=== PATIENT | male | born 1985 | race Hispanic/Latino ===

== ENCOUNTER 2018-01-08 17:04 | Emergency (ER) | payer SELFPAY ==
[2018-01-08] MEDS ORDERED: ASPIRIN 81 MG CHEWABLE TABLET ONE (18:58)
--- NOTE | 2018-01-08 19:06 | EKG ---
Test Date: 2018-01-08 Test Time: 17:16:17 Supervisor Cured Meats: GENARO MEASUREMENT RESULTS: Intervals: Rate: 86 GA: 148 QRSD: 94 QT: 358 QTc: 428 [place]: P: 52 GA: 148 QRS: 82 T: 22 INTERPRETIVE STATEMENTS: Sinus rhythm with marked sinus arrhythmia Otherwise normal ECG Compared to ECG 11/21/2014 10:54:47 No significant changes Electronically Signed On 01-08-18 19:05:39 CDT by Daniel Wilkerson
[2018-01-08 19:24] LABS: Barbiturates NEGATIVE; Benzodiazepines NEGATIVE; Cocaine NEGATIVE; METHAMPHETAM NEGATIVE; Opiates NEGATIVE; Phencyclidine NEGATIVE; THC Cannibis NEGATIVE
[2018-01-08 19:27] LABS: Absolute Lymphocytes (CBC) 2.3 K/uL (0.7-4.9); Absolute Monocytes 0.5 K/uL (0.1-1.3); Absolute Neutrophil 4.9 K/uL (1.8-8.0); Basophils % 0.3 % (0-1.3); Hematocrit 44.3 % (39.6-49.0); Lymphocytes % 29.5 % (15.3-44.8); MCH 29.8 pg (27.0-35.0); MCV 85.9 fL (80-100); Monocytes % 6.1 % (3.3-12.3); RBC Red Blood Cell Count 5.16 M/uL (4.33-5.43)
[2018-01-08 19:30] LABS: Protime INR 0.96
[2018-01-08 19:31] LABS: Bicarbonate 26 mEq/L (21-31); Glucose Level 92 mg/dL (65-120); Potassium 3.6 mEq/L (3.6-5.0); Sodium Level 138 mEq/L (135-145)
[2018-01-08 19:36] LABS: Urine Blood NEGATIVE (NEG); Urine Glucose NEGATIVE (NEG); Urine Protein NEGATIVE (NEG); Urine Specific Gravity 1.015 (1.005-1.030)
[2018-01-08 19:37] LABS: ALT/SGPT 42 IU/L (10-60); AST/SGOT 17 IU/L (10-42); Albumin 4.2 g/dL (3.2-5.5); Alkaline Phosphatase 48 IU/L (42-121); BUN Blood Urea Nitrogen 12 mg/dL (6-20); Bilirubin Direct 0.2 mg/dL (0-0.2); Bilirubin Total 1.1 mg/dL (0.3-1.2); Creatine Phosphokinase 141 IU/L (22-269); Protein, Total 7.2 g/dL (6.0-8.3)
[2018-01-08 19:38] LABS: CKMB Creatine Kinase MB 1.5 ng/ml (0.3-4.0)
--- NOTE | 2018-01-08 20:21 | RAD REPORT ---
EXAM DESCRIPTION: RAD - Chest Single View - 01/08/2018 8:08 pm CLINICAL HISTORY: Chest pain. COMPARISON: 11/21/2014 FINDINGS: Portable technique limits examination quality. The lungs are grossly clear. The heart is normal in size. No displaced fractures. IMPRESSION: No acute intrathoracic process suspected.
--- NOTE | 2018-01-08 21:54 | ER ---
Nurse's Notes [facility] Name: Zackary Mandujano Jr Age: 32 yrs Sex: Male : 1985 Arrival Date: 01/08/2018 Time: 17:07 Bed 25 Private MD: Diagnosis: Chest pain, unspecified Presentation: 01/08 17:08 Presenting complaint: Patient states: i have pain in my chest yesterday, heavy feeling; hj denies nausea and vomiting; pain is 7/10; states feels like i wanna pass out;. Transition of care: patient was not received from another setting of care. Onset of symptoms was January 08, 2018. Care prior to arrival: None. 17:08 Method Of Arrival: Ambulatory 17:08 Acuity: TOYA 3 hj Triage Assessment: 17:10 General: Appears in no apparent distress. uncomfortable, Behavior is calm, cooperative, hj appropriate for age. Pain: Complains of pain in chest. Cardiovascular: Capillary refill. Historical: - Allergies: 17:09 No Known Allergies; hj - Home Meds: 17:09 None [Active]; hj - PMHx: 17:09 None; hj - PSHx: 17:09 None; hj - Immunization history:: Flu vaccine status is unknown. - Social history:: Smoking status: Patient/guardian denies using tobacco. Screenin:11 Abuse screen: Denies threats or abuse. Nutritional screening: No deficits noted. kb1 Tuberculosis screening: No symptoms or risk factors identified. Fall Risk None identified. Assessment: 17:10 Pain: Pain does not radiate. Pain began suddenly. hj 18:11 General: Appears in no apparent distress. Behavior is calm, cooperative. Pain: Denies kb1 pain. Neuro: Level of Consciousness is awake, alert, obeys commands, Oriented to person, place, time, situation. Cardiovascular: Reports Intermittent chest pain since Friday. States "I have a history of anxiety and I think that may be what it is". Reports having new stressors, and that pain comes along when he is "thinking". Respiratory: Denies shortness of breath. GI: No signs and/or symptoms were reported involving the gastrointestinal system. : No signs and/or symptoms were reported regarding the genitourinary system. 19:40 Reassessment: Patient appears in no apparent distress at this time. Patient and/or kb1 family updated on plan of care and expected duration. Pain level reassessed. Patient is alert, oriented x 3, equal unlabored respirations, skin warm/dry/pink. 20:39 Reassessment: Patient appears in no apparent distress at this time. Patient and/or kb1 family updated on plan of care and expected duration. Pain level reassessed. Patient is alert, oriented x 3, equal unlabored respirations, skin warm/dry/pink. Request something to drink. Gatorade provided. 21:42 Reassessment: Patient appears in no apparent distress at this time. Patient and/or kb1 family updated on plan of care and expected duration. Pain level reassessed. Patient is alert, oriented x 3, equal unlabored respirations, skin warm/dry/pink. Vital Signs: 17:10 BP 133 / 89; Pulse 88; Resp 18; Temp 98.7(TE); Pulse Ox 98% on R/A; Weight 108.86 kg; hj Height 5 ft. 11 in. (180.34 cm); Pain 7/10; 18:11 BP 124 / 86; Pulse 74; Resp 18; Pulse Ox 96% on R/A; kb1 19:41 BP 129 / 74; Pulse 95; Resp 18; Pulse Ox 98% ; kb1 20:42 BP 133 / 78; Pulse 61; Resp 18; Pulse Ox 98% ; kb1 21:45 BP 108 / 70; Pulse 57; Resp 18; Pulse Ox 97% ; kb1 17:10 Body Mass Index 33.47 (108.86 kg, 180.34 cm) ED Course: 17:07 Patient arrived in ED. rg4 17:09 Triage completed. hj 17:10 Arm band placed on right wrist. hj 17:10 personnel monitor on. Pulse ox on. NIBP on. hj 17:10 Patient maintains SpO2 saturation greater than 95% on room air. hj 17:32 EKG done, by ortho tech. reviewed by Garrett Florez MD. at1 18:01 Betty Han, RN is Primary Nurse. kb1 18:11 Patient has correct armband on for positive identification. Placed in gown. Bed in low kb1 position. Call light in reach. Side rails up X 1. personnel monitor on. Pulse ox on. NIBP on. 18:11 No provider procedures requiring assistance completed. kb1 18:12 Garrett Wheat PA is PHCP. cp 18:12 Garrett Florez MD is Attending Physician. cp 18:55 Inserted saline lock: 20 gauge in left antecubital area, using aseptic technique. Blood kb1 collected. 18:55 Urine collected: clean catch specimen. kb1 20:07 X-ray completed. Portable x-ray completed in exam room. Patient tolerated procedure kc2 well. 20:08 XRAY Chest (1 view) In Process Unspecified. EDMS 21:42 Repeat lab(s) drawn. by me, sent to lab. kb1 21:44 EKG done, by ED staff, reviewed by Garrett ELDRIDGE. kb1 22:11 IV discontinued, intact, bleeding controlled, No redness/swelling at site. Pressure kb1 dressing applied. Administered Medications: 18:56 Drug: Aspirin Chewable Tablet 324 mg Route: PO; kb1 20:16 Follow up: Response: No adverse reaction kb1 Outcome: 21:54 Discharge ordered by MD. cp 22:12 Discharged to home ambulatory. kb1 22:12 Condition: stable 22:12 Discharge instructions given to patient, Instructed on discharge instructions, follow up and referral plans. Demonstrated understanding of instructions, follow-up care. 22:13 Patient left the ED. kb1 Signatures: Dispatcher [employer] EDMS Sylvia cesar, sound technician supervisor EKG Tat1 Daivd Jain, RN RN Garrett Goodman PA PA cp Carr, Kelsie kc2 Nathaly Moore rg4 Betty Han RN RN kb1 Corrections: (The following items were deleted from the chart) 17:12 17:10 Pulse 88bpm; Resp 18bpm; Pulse Ox 98% RA; Temp 98.7F Temporal; 108.86 kg; Height hj 5 ft. 11 in.; BMI: 33.4; Pain 7/10; hj
--- NOTE | 2018-01-08 21:54 | EDPHYS ---
Physician Documentation [facility] Name: Zackary Mandujano Jr Age: 32 yrs Sex: Male : 1985 Arrival Date: 01/08/2018 Time: 17:07 Bed 25 Private MD: ED Physician Garrett Florez HPI: 01/08 18:30 This 32 yrs old Male presents to ER via Ambulatory with complaints of Chest cp Pain, Headache. 18:30 The patient or guardian reports chest pain that is located primarily in the anterior cp chest wall, left. 18:30 The pain does not radiate. Associated signs and symptoms: Pertinent positives: cp headache, Pertinent negatives: cough, diaphoresis, dizziness, lower extremity pain, lower extremity swelling, near syncope, shortness of breath, syncope. The chest pain is described as a pressure. Duration: The patient or guardian reports multiple episodes, that are intermittent. Severity of pain: in the emergency department the pain has resolved and did so while in waiting room. Historical: - Allergies: 17:09 No Known Allergies; hj - Home Meds: 17:09 None [Active]; hj - PMHx: 17:09 None; hj - PSHx: 17:09 None; hj - Immunization history:: Flu vaccine status is unknown. - Social history:: Smoking status: Patient/guardian denies using tobacco. ROS: 18:35 Constitutional: Negative for body aches, chills, fever, poor PO intake. cp 18:35 Eyes: Negative for injury, pain, redness, and discharge. cp 18:35 ENT: Negative for injury, pain, and discharge, Neck: Negative for injury, pain, and cp swelling. 18:35 Cardiovascular: Positive for chest pain, Negative for edema, palpitations. 18:35 Respiratory: Negative for cough, pleurisy, shortness of breath, wheezing. 18:35 Abdomen/GI: Negative for abdominal pain, nausea, vomiting, and diarrhea, constipation, anorexia, black/tarry stool, rectal bleeding. 18:35 Back: Negative for pain at rest, pain with movement, radiated pain. 18:35 : Negative for urinary symptoms. 18:35 MS/extremity: Negative for injury or acute deformity, decreased range of motion, paresthesias. 18:35 Skin: Negative for cellulitis, rash. 18:35 Neuro: Negative for altered mental status, headache, syncope, near syncope, weakness. 18:35 All other systems are negative. Exam: 18:45 Constitutional: The patient appears in no acute distress, alert, awake, comfortable, cp non-diaphoretic, non-toxic, well developed, well nourished. 18:45 Head/Face: Normocephalic, atraumatic. cp 18:45 Eyes: Pupils equal round and reactive to light, extra-ocular motions intact. Lids and cp lashes normal. Conjunctiva and sclera are non-icteric and not injected. Cornea within normal limits. Periorbital areas with no swelling, redness, or edema. ENT: Nares patent. No nasal discharge, no septal abnormalities noted. Tympanic membranes are normal and external auditory canals are clear. Oropharynx with no redness, swelling, or masses, exudates, or evidence of obstruction, uvula midline. Mucous membranes moist. Neck: Trachea midline, no thyromegaly or masses palpated, and no cervical lymphadenopathy. Supple, full range of motion without nuchal rigidity, or vertebral point tenderness. No Meningismus. Chest/axilla: Normal chest wall appearance and motion. Nontender with no deformity. No lesions are appreciated. 18:45 Cardiovascular: Rate: normal, Rhythm: regular, Pulses: Pulses are 2+ in right radial cp artery and left radial artery. Heart sounds: murmur, not appreciated, rub, not appreciated, gallop, not appreciated, Edema: is not appreciated. 18:45 Respiratory: the patient does not display signs of respiratory distress, Respirations: normal, no use of accessory muscles, no retractions, no splinting, no tachypnea, labored breathing, is not present, Breath sounds: are clear throughout, no decreased breath sounds, no stridor, no wheezing. 18:45 Abdomen/GI: Inspection: abdomen appears normal, Bowel sounds: active, all quadrants, Palpation: abdomen is soft and non-tender, in all quadrants, rebound tenderness, is not appreciated, voluntary guarding, is not appreciated, involuntary guarding, is not appreciated. 18:45 Back: pain, is absent, ROM is normal. 18:45 Musculoskeletal/extremity: Exam is negative for calf tenderness, decreased range of motion, deformity, injury. 18:45 Skin: cellulitis, is not appreciated, no rash present. 18:45 Neuro: Orientation: to person, place \T\ time. Mentation: is normal, Cerebellar function: is grossly normal, Motor: moves all fours, strength is normal, Sensation: no obvious gross deficits. Vital Signs: 17:10 BP 133 / 89; Pulse 88; Resp 18; Temp 98.7(TE); Pulse Ox 98% on R/A; Weight 108.86 kg; hj Height 5 ft. 11 in. (180.34 cm); Pain 7/10; 18:11 BP 124 / 86; Pulse 74; Resp 18; Pulse Ox 96% on R/A; kb1 19:41 BP 129 / 74; Pulse 95; Resp 18; Pulse Ox 98% ; kb1 20:42 BP 133 / 78; Pulse 61; Resp 18; Pulse Ox 98% ; kb1 21:45 BP 108 / 70; Pulse 57; Resp 18; Pulse Ox 97% ; kb1 17:10 Body Mass Index 33.47 (108.86 kg, 180.34 cm) hj MDM: 18:13 Patient medically screened. cp 19:00 Differential diagnosis: abnormal EKG, acute myocardial infarction, acute pericarditis, cp anxiety, chest wall pain, cholecystitis, Cholelithiasis costochondritis, esophagitis, gastritis, pancreatitis, pericarditis, pleurisy, pneumonia, pneumothorax, pulmonary embolus, stable angina, thoracic aortic disection, unstable angina. 21:53 Data reviewed: vital signs, nurses notes, lab test result(s), EKG, radiologic studies, cp plain films. 21:53 Special discussion: Based on the patient's history, exam, and Dx evaluation, there is cp no indication for emergent intervention or inpatient Tx. It is understood by the patient/guardian that if the Sx's persist or worsen they need to return immediately for re-evaluation. 21:53 ED course: VSS. Labs, EKGs and chest xray reviewed, negative. Will discharge to home cp for continued monitoring. 01/08 18:30 Order name: Basic Metabolic Panel; Complete Time: 19:48 cp 01/08 18:30 Order name: BNP; Complete Time: 21:32 cp 01/08 18:30 Order name: CBC with Diff; Complete Time: 19:48 cp 01/08 18:30 Order name: Ckmb; Complete Time: 19:48 cp 01/08 18:30 Order name: CPK; Complete Time: 19:48 cp 04/05 18:30 Order name: LFT's; Complete Time: 19:48 cp 04/05 18:30 Order name: Magnesium; Complete Time: 19:48 cp 04/05 18:30 Order name: PT-INR; Complete Time: 19:48 cp 04/05 18:30 Order name: Ptt, Activated; Complete Time: 19:48 cp 04/05 18:30 Order name: Troponin (emerg Dept Use Only); Complete Time: 19:48 cp 04/05 18:30 Order name: UDS; Complete Time: 19:49 cp 04/05 18:30 Order name: D-Dimer; Complete Time: 19:49 cp /05 18:59 Order name: Urine Dipstick--Ancillary (enter results); Complete Time: 19:49 ag / 21:18 Order name: Troponin I; Complete Time: 21:53 cp 04/05 21:53 Interpretation: Reviewed. cp / 17:12 Order name: EKG; Complete Time: 17:12 hj 01/08 18:12 Order name: EKG - Nurse/Tech; Complete Time: 18:20 cp 05 18:30 Order name: XRAY Chest (1 view); Complete Time: 21:32 cp /05 18:30 Order name: Cardiac monitoring; Complete Time: 18:56 cp /05 18:30 Order name: IV Saline Lock; Complete Time: 18:56 cp /05 18:30 Order name: Labs collected and sent; Complete Time: 18:56 cp /05 18:30 Order name: O2 Per Protocol; Complete Time: 18:56 cp /05 18:30 Order name: O2 Sat Monitoring; Complete Time: 18:56 cp /05 18:30 Order name: Urine Dipstick-Ancillary (obtain specimen); Complete Time: 18:56 cp 05 21:18 Order name: EKG; Complete Time: 21:19 cp / 21:18 Order name: EKG - Nurse/Tech; Complete Time: 21:43 cp Administered Medications: 18:56 Drug: Aspirin Chewable Tablet 324 mg Route: PO; kb1 20:16 Follow up: Response: No adverse reaction kb1 Disposition: 01/09 10:36 Co-signature as Attending Physician, Garrett Florez MD I agree with the assessment and norbert plan of care. Disposition: 01/08/18 21:54 Discharged to Home. Impression: Chest pain, unspecified. - Condition is Stable. - Discharge Instructions: Nonspecific Chest Pain, Aspirin and Your Heart. - Medication Reconciliation Form, Thank You Letter, Antibiotic Education, Prescription Opioid Use form. - Follow up: Private Physician; When: 2 - 3 days; Reason: Recheck today's complaints. - Problem is new. - Symptoms are resolved. Signatures: Dispatcher [employer] EDGarrett Colorado MD MD cha Joaquin, Henry, RN RN hj Garrett Wheat PA PA cp Brown, Kristina, RN RN kb1
[2018-01-08 22:25] VITALS: TEMP 98.7
[2018-01-08 22:30] VITALS: BP 108/70; O2SAT 97
--- NOTE | 2018-01-09 06:31 | EKG ---
Test Date: 2018-01-08 Test Time: 21:23:07 Room Service Attendant: OLLIE MEASUREMENT RESULTS: Intervals: Rate: 51 MD: 146 QRSD: 96 QT: 406 QTc: 374 [place]: P: 32 MD: 146 QRS: 75 T: 32 INTERPRETIVE STATEMENTS: Sinus bradycardia with sinus arrhythmia Otherwise normal ECG Compared to ECG 01/08/2018 17:16:17 Sinus rhythm no longer present Electronically Signed On 01-09-18 06:30:54 CDT by Daniel Wilkerson
== END 2018-01-08 22:13 | disposition home or self-care (01) ==
LOC: ER 17:04
DX: R07.9 Chest pain, unspecified (principal)
CPT/HCPCS: 36415; 71045; 80048; 80076; 80307; 81003; 82550; 82553; 83735; 83880; 84484; 85025; 85379; 85610; 85730; 93005; 99285

== ENCOUNTER 2019-03-29 18:22 | Emergency (ER) | payer SELFPAY ==
[2019-03-29 20:17] LABS: Absolute Lymphocytes (CBC) 2.6 K/uL (0.7-4.9); Basophils % 0.1 % (0-1.3); Eosinophils % 1.5 % (0-4.4); Hematocrit 44.2 % (39.6-49.0); MPV 8.9 fL (7.6-11.3); Monocytes % 6.9 % (3.3-12.3); RBC Red Blood Cell Count 5.07 M/uL (4.33-5.43)
[2019-03-29 20:30] LABS: BUN Blood Urea Nitrogen 13 mg/dL (7-18); Bicarbonate 28 mmol/L (21-32); Glucose Level 102 mg/dL (74-106); Potassium 3.6 mmol/L (3.5-5.1); Sodium Level 142 mmol/L (136-145)
--- NOTE | 2019-03-29 21:19 | ER ---
Nurse's Notes [facility] Name: Zackary Mandujano Jr Age: 33 yrs Sex: Male : 1985 Arrival Date: 03/29/2019 Time: 18:25 Bed 17 Private MD: Diagnosis: Headache;Paresthesia of skin Presentation: 03/29 18:28 Presenting complaint: Patient states: nadia been having this headache for 4-5 days now hj and my L leg is asleep; on triage pt has steady gait; pain is 2/10;. Transition of care: patient was not received from another setting of care. Onset of symptoms was March 29, 2019. Risk Assessment: Do you want to hurt yourself or someone else? Patient reports no desire to harm self or others. Initial Sepsis Screen: Does the patient meet any 2 criteria? No. Patient's initial sepsis screen is negative. Does the patient have a suspected source of infection? No. Patient's initial sepsis screen is negative. Care prior to arrival: None. 18:28 Method Of Arrival: Ambulatory 18:28 Acuity: TOYA 3 hj Historical: - Allergies: 18:29 No Known Allergies; hj - PMHx: 18:29 None; hj - PSHx: 18:29 None; hj - Immunization history:: Adult Immunizations up to date. - Social history:: Smoking status: Patient/guardian denies using tobacco. - Ebola Screening: : Patient negative for fever greater than or equal to 101.5 degrees Fahrenheit, and additional compatible Ebola Virus Disease symptoms Patient denies exposure to infectious person Patient denies travel to an Ebola-affected area in the 21 days before illness onset. Screenin:45 Abuse screen: Denies threats or abuse. Denies injuries from another. Nutritional ca1 screening: No deficits noted. Tuberculosis screening: No symptoms or risk factors identified. Fall Risk None identified. Assessment: 18:45 General: Appears in no apparent distress. comfortable, Behavior is calm, cooperative, ca1 appropriate for age. Pain: Complains of pain in face, scalp and left leg Pain does not radiate. Pain at worst was 6 out of 10 on a pain scale. Quality of pain is described as numb, Pain began 4 days ago. Neuro: Level of Consciousness is awake, alert, obeys commands, Oriented to person, place, time, situation, Reports headache. Cardiovascular: Heart tones S1 S2 present Capillary refill < 3 seconds Patient's skin is warm and dry. Cardiovascular: Reports lightheadedness. Respiratory: Airway is patent Respiratory effort is even, unlabored, Respiratory pattern is regular, symmetrical, Breath sounds are clear bilaterally. GI: Abdomen is round non-distended, Bowel sounds present X 4 quads. Abd is soft and non tender X 4 quads. : No deficits noted. No signs and/or symptoms were reported regarding the genitourinary system. EENT: No deficits noted. No signs and/or symptoms were reported regarding the EENT system. Derm: Skin is intact, is healthy with good turgor, Skin is pink, warm \T\ dry. Musculoskeletal: Circulation, motion, and sensation intact. Capillary refill < 3 seconds, Range of motion: intact in all extremities. 19:00 General: Appears in no apparent distress. comfortable, Behavior is calm, cooperative. ed1 Pain: Complains of pain in head and left leg Pain currently is 6 out of 10 on a pain scale. Quality of pain is described as aching, Pain began 4 days ago. Neuro: Level of Consciousness is awake, alert, obeys commands, Oriented to person, place, time, situation, Reports headache in entire parietal area, frontal area. Cardiovascular: Denies chest pain at this time Heart tones S1 S2 present Capillary refill < 3 seconds in bilateral fingers Patient's skin is warm and dry. Respiratory: Airway is patent Respiratory effort is even, unlabored, Respiratory pattern is regular, symmetrical, Breath sounds are clear bilaterally. GI: No signs and/or symptoms were reported involving the gastrointestinal system. : No signs and/or symptoms were reported regarding the genitourinary system. EENT: No signs and/or symptoms were reported regarding the EENT system. Derm: Skin is intact, is healthy with good turgor, Skin is dry, Skin is normal, Skin temperature is warm. Musculoskeletal: Circulation, motion, and sensation intact. Capillary refill < 3 seconds, in bilateral fingers. Range of motion: intact in all extremities, Swelling absent Reports pain in left leg. 20:14 Reassessment: Patient appears in no apparent distress at this time. No changes from ed1 previously documented assessment. Patient and/or family updated on plan of care and expected duration. Pain level reassessed. Patient is alert, oriented x 3, equal unlabored respirations, skin warm/dry/pink. Patient states symptoms have not improved. 21:33 Reassessment: Patient appears in no apparent distress at this time. Patient and/or ed1 family updated on plan of care and expected duration. Pain level reassessed. Patient is alert, oriented x 3, equal unlabored respirations, skin warm/dry/pink. Patient states feeling better. Patient states symptoms have improved. Vital Signs: 18:29 BP 147 / 86; Pulse 76; Resp 18; Temp 98.1(O); Pulse Ox 98% on R/A; Weight 113.4 kg; hj Height 5 ft. 11 in. (180.34 cm); Pain 2/10; 19:00 BP 137 / 79; Pulse 67; Resp 17; Temp 98.5(O); Pulse Ox 98% on R/A; Pain 3/10; ed1 20:14 BP 132 / 80; Pulse 72; Resp 26; Temp 98.1(O); Pulse Ox 98% on R/A; Pain 3/10; ed1 21:33 BP 133 / 77; Pulse 84; Resp 17; Temp 98.2(O); Pulse Ox 100% on R/A; Pain 0/10; ed1 18:29 Body Mass Index 34.87 (113.40 kg, 180.34 cm) ED Course: 18:25 Patient arrived in ED. mr 18:29 Triage completed. hj 18:29 Arm band placed on left wrist. hj 18:45 No provider procedures requiring assistance completed. ca1 18:49 Bahman Hollins MD is Attending Physician. kdr 18:49 Alysno Hawkins, JAMES is Primary Nurse. ca1 18:52 Patient has correct armband on for positive identification. Placed in gown. Bed in low mh5 position. Call light in reach. Side rails up X 1. Adult w/ patient. Warm blanket given. cyber systems administrator on. Pulse ox on. NIBP on. 18:52 EKG done, by ED staff, reviewed by Bahman Hollins MD. mh5 18:57 Primary Nurse role handed off by Alyson Hawkins, RN ca1 18:59 Jeanette De Jesus RN is Primary Nurse. ed1 20:02 CT Head Brain wo Cont In Process Unspecified. EDMS 20:51 Inserted saline lock: 20 gauge in right antecubital area, using aseptic technique. ag4 Blood collected. 21:33 IV discontinued, intact, bleeding controlled, No redness/swelling at site. Pressure ed1 dressing applied. Administered Medications: No medications were administered Outcome: 21:18 Discharge ordered by . kdr 21:33 Discharged to home ambulatory. ed1 21:33 Condition: good 21:33 Discharge instructions given to patient, Instructed on discharge instructions, follow up and referral plans. medication usage, Demonstrated understanding of instructions, follow-up care, medications, Prescriptions given X 1. 21:35 Patient left the ED. ed1 Signatures: Dispatcher [employer] EDMS Bahman Hollins MD MD kdr Rivera, Marielena mr Jeanette De Jesus RN RN ed1 David Jain, JAMES RN Rachel Lee [facility] Yovani Woodson ag4 Alyson Hawkins RN RN ca1 Corrections: (The following items were deleted from the chart) 18:31 18:29 Pulse 76bpm; Resp 18bpm; Pulse Ox 98% RA; Temp 98.1F Oral; 113.4 kg; Height 5 ft. hj 11 in.; BMI: 34.8; Pain 2/10; hj
--- NOTE | 2019-03-29 21:19 | EDPHYS ---
Physician Documentation [facility] Name: Zackary Mandujano Jr Age: 33 yrs Sex: Male : 1985 Arrival Date: 03/29/2019 Time: 18:25 Bed 17 Private MD: ED Physician Bahman Hollins HPI: 03/29 20:37 This 33 yrs old Male presents to ER via Ambulatory with complaints of kdr Headache, Numbness. 20:37 The patient complains of pain to the left temporal area, left occipital area, right kdr frontal area, right temporal area and right occipital area. The patient describes the headache as aching, intermittent, a pressure, waxing and waning. Onset: The symptoms/episode began/occurred gradually, 4 day(s) ago. Associated signs and symptoms: Pertinent positives: The patient has a "pins \\T\\ needles" sensation to he left lower extremity that has been progressing up his left left leg. the sensation has been ongoing for some time but has recently progressed up his leg to his thigh. Severity of symptoms: At its worst the pain was very mild, in the emergency department the pain is unchanged. Headache History: The patient has had previous headaches and this one is different than previous episodes. The symptoms are alleviated by nothing. the symptoms are aggravated by nothing. The patient has not experienced similar symptoms in the past. The patient has not recently seen a physician. Historical: - Allergies: 18:29 No Known Allergies; hj - PMHx: 18:29 None; hj - PSHx: 18:29 None; hj - Immunization history:: Adult Immunizations up to date. - Social history:: Smoking status: Patient/guardian denies using tobacco. - Ebola Screening: : Patient negative for fever greater than or equal to 101.5 degrees Fahrenheit, and additional compatible Ebola Virus Disease symptoms Patient denies exposure to infectious person Patient denies travel to an Ebola-affected area in the 21 days before illness onset. ROS: 20:37 Constitutional: Negative for fever, chills, and weight loss, Eyes: Negative for injury, kdr pain, redness, and discharge, ENT: Negative for injury, pain, and discharge, Neck: Negative for injury, pain, and swelling, Cardiovascular: Negative for chest pain, palpitations, and edema, Respiratory: Negative for shortness of breath, cough, wheezing, and pleuritic chest pain, Abdomen/GI: Negative for abdominal pain, nausea, vomiting, diarrhea, and constipation, Back: Negative for injury and pain, : Negative for injury, bleeding, discharge, and swelling, MS/Extremity: Negative for injury and deformity, Skin: Negative for injury, rash, and discoloration, Psych: Negative for depression, anxiety, suicide ideation, homicidal ideation, and hallucinations, Allergy/Immunology: Negative for hives, rash, and allergies, Endocrine: Negative for neck swelling, polydipsia, polyuria, polyphagia, and marked weight changes, Hematologic/Lymphatic: Negative for swollen nodes, abnormal bleeding, and unusual bruising. 20:37 Neuro: Positive for headache, tingling, Negative for altered mental status, dizziness, gait disturbance, hearing loss, loss of consciousness, numbness, seizure activity, speech changes, syncope, near syncope, tinnitus, tremor, visual changes, weakness. Exam: 20:37 Constitutional: This is a well developed, well nourished patient who is awake, alert, kdr and in no acute distress. Head/Face: Normocephalic, atraumatic. Eyes: Pupils equal round and reactive to light, extra-ocular motions intact. Lids and lashes normal. Conjunctiva and sclera are non-icteric and not injected. Cornea within normal limits. Periorbital areas with no swelling, redness, or edema. Neck: Trachea midline, no thyromegaly or masses palpated, and no cervical lymphadenopathy. Supple, full range of motion without nuchal rigidity, or vertebral point tenderness. No Meningismus. Chest/axilla: Normal chest wall appearance and motion. Nontender with no deformity. No lesions are appreciated. Cardiovascular: Regular rate and rhythm with a normal S1 and S2. No gallops, murmurs, or rubs. Normal PMI, no JVD. No pulse deficits. Respiratory: Lungs have equal breath sounds bilaterally, clear to auscultation and percussion. No rales, rhonchi or wheezes noted. No increased work of breathing, no retractions or nasal flaring. Abdomen/GI: Soft, non-tender, with normal bowel sounds. No distension or tympany. No guarding or rebound. No evidence of tenderness throughout. Back: No spinal tenderness. No costovertebral tenderness. Full range of motion. Skin: Warm, dry with normal turgor. Normal color with no rashes, no lesions, and no evidence of cellulitis. MS/ Extremity: Pulses equal, no cyanosis. Neurovascular intact. Full, normal range of motion. Neuro: Awake and alert, GCS 15, oriented to person, place, time, and situation. Cranial nerves II-XII grossly intact. Motor strength 5/5 in all extremities. Sensory grossly intact. Cerebellar exam normal. Normal gait. Psych: Awake, alert, with orientation to person, place and time. Behavior, mood, and affect are within normal limits. 21:05 ECG was reviewed by the Attending Physician. kdr Vital Signs: 18:29 BP 147 / 86; Pulse 76; Resp 18; Temp 98.1(O); Pulse Ox 98% on R/A; Weight 113.4 kg; hj Height 5 ft. 11 in. (180.34 cm); Pain 2/10; 19:00 BP 137 / 79; Pulse 67; Resp 17; Temp 98.5(O); Pulse Ox 98% on R/A; Pain 3/10; ed1 20:14 BP 132 / 80; Pulse 72; Resp 26; Temp 98.1(O); Pulse Ox 98% on R/A; Pain 3/10; ed1 21:33 BP 133 / 77; Pulse 84; Resp 17; Temp 98.2(O); Pulse Ox 100% on R/A; Pain 0/10; ed1 18:29 Body Mass Index 34.87 (113.40 kg, 180.34 cm) MDM: 20:37 Data reviewed: vital signs, nurses notes, lab test result(s), radiologic studies. kdr Counseling: I had a detailed discussion with the patient and/or guardian regarding: the historical points, exam findings, and any diagnostic results supporting the discharge/admit diagnosis, lab results, radiology results, the need for outpatient follow up. 21:18 Patient medically screened. kdr 03/29 19:15 Order name: CBC with Diff kdr 03/29 19:15 Order name: Chem 7 kdr 03/29 19:15 Order name: CT Head Brain wo Cont kdr EC:05 Rate is 68 beats/min. Rhythm is regular, Normal Sinus Rhythm with No ectopy. CA kdr interval is normal. QRS interval is normal. QT interval is normal. No Q waves. T waves are Normal. Clinical impression: NSR w/ Non-specific ST/T Changes. Administered Medications: No medications were administered Disposition: 03/29/19 21:18 Discharged to Home. Impression: Headache, Paresthesia of skin. - Condition is Stable. - Discharge Instructions: General Headache Without Cause, Paresthesia, [id number]. - Prescriptions for Ibuprofen 600 mg Oral Tablet - take 1 tablet by ORAL route every 6 hours As needed take with food; 15 tablet. - Medication Reconciliation Form, Thank You Letter form. - Follow up: Private Physician; When: 2 - 3 days; Reason: If symptoms return, Further diagnostic work-up, Recheck today's complaints, Continuance of care, Re-evaluation by your physician. - Problem is new. - Symptoms have improved. Signatures: Dispatcher [employer] EDMS Bahman Hollins MD MD [facility] Jeanette De Jesus RN RN ed1 David Jain RN RN Alyson Hawkins RN RN ca1 Corrections: (The following items were deleted from the chart) 21:35 21:18 03/29/2019 21:18 Discharged to Home. Impression: Headache; Paresthesia of skin. ed1 Condition is Stable. Forms are Medication Reconciliation Form, Thank You Letter, Antibiotic Education, Prescription Opioid Use. Follow up: Private Physician; When: 2 - 3 days; Reason: If symptoms return, Further diagnostic work-up, Recheck today's complaints, Continuance of care, Re-evaluation by your physician. Problem is new. Symptoms have improved. kdr
[2019-03-29 22:36] VITALS: BP 133/77; TEMP 98.2; O2SAT 100
--- NOTE | 2019-03-30 12:14 | RAD REPORT ---
EXAM DESCRIPTION: CT - Head Brain Wo Cont - 03/30/2019 1:20 am CLINICAL HISTORY: 33 years Male numbness to left leg and [place] COMPARISON: None TECHNIQUE: Contiguous axial images of the brain were obtained without the administration of intraven ous contrast.This exam was performed according to our departmental dose-optimization program which in cludes use of Automated Exposure Control, adjustment of the mA and/or kV according to patient size an d/or use of iterative reconstruction technique. FINDINGS: Brain: No acute intracranial hemorrhage. No extra-axial collection. No mass effect or constanza iation. Ventricles: Within normal limits in size. Globes and orbits: No acute abnormality. Bones: No acute osseous finding. Paranasal sinuses: Paranasal sinuses are clear. Mastoid air cells: Well pneumatized.. Soft tissues: Within normal limits IMPRESSION: No acute intracranial abnormality. Electronically signed by: Umang Srivastava DO 03/29/2019 8:17 PM CDT Due to temporary technical issues with the PACS/Fluency reporting system, reports are being signed by the in house radiologist as a courtesy to ensure prompt reporting. The interpreting radiologist is f ully responsible for the content of the report.
--- NOTE | 2019-03-30 14:51 | EKG ---
Test Date: 2019-03-29 Test Time: 18:44:45 Seed Cleaning Machine Operator: XIANG MEASUREMENT RESULTS: Intervals: Rate: 68 [place]: 146 QRSD: 96 QT: 380 QTc: 404 [place]: P: 31 [place]: 146 QRS: 7 T: 15 INTERPRETIVE STATEMENTS: Normal sinus rhythm Nonspecific T wave abnormality Abnormal ECG Compared to ECG 01/08/2018 21:23:07 T-wave abnormality now present Sinus bradycardia no longer present Sinus arrhythmia no longer present Electronically Signed On 03-30-19 14:47:27 CDT by Sorin Shin
== END 2019-03-29 21:35 | disposition home or self-care (01) ==
LOC: ER 18:22
DX: R51 Headache (principal); R20.2 Paresthesia of skin
CPT/HCPCS: 36415; 70450; 80048; 85025; 93005; 99284

== ENCOUNTER 2019-10-22 14:28 | Emergency (ER) | payer SELFPAY ==
[2019-10-22] MEDS ORDERED: NA CHLORIDE 0.9% 1,000 ML ONE (15:32)
[2019-10-22 15:53] LABS: Absolute Lymphocytes (CBC) 2.1 K/uL (0.7-4.9); Basophils % 0.5 % (0-1.3); Hematocrit 39.9 % (39.6-49.0); Lymphocytes % 32.9 % (15.3-44.8); MPV 8.7 fL (7.6-11.3); RBC Red Blood Cell Count 4.64 M/uL (4.33-5.43)
[2019-10-22 15:55] LABS: Protime INR 0.96
[2019-10-22 16:10] LABS: ALT/SGPT 50 U/L (12-78); AST/SGOT 8 U/L (15-37); Albumin 3.6 g/dL (3.4-5.0); Alkaline Phosphatase 69 U/L (45-117); BUN Blood Urea Nitrogen 11 mg/dL (7-18); Bicarbonate 26 mmol/L (21-32); Bilirubin Direct 0.2 mg/dL (0-0.2); Bilirubin Total 0.6 mg/dL (0.2-1.0); Glucose Level 112 mg/dL (74-106); Magnesium 2.1 mg/dL (1.8-2.4); NT PRO-BNP 5 pg/mL (<125); Potassium 3.9 mmol/L (3.5-5.1); Protein, Total 7.2 g/dL (6.4-8.2); Sodium Level 145 mmol/L (136-145); Troponin (Emerg Dept Use Only) < 0.02 ng/mL (0.0-0.045)
--- NOTE | 2019-10-22 16:30 | RAD REPORT ---
EXAM DESCRIPTION: RAD - Chest Single View - 10/22/2019 3:37 pm CLINICAL HISTORY: Palpitations, chest pain COMPARISON: January 2018 TECHNIQUE: AP portable chest image was obtained 1530 hours . FINDINGS: Lungs are clear. Heart and vasculature are normal. No measurable pleural effusion and no p neumothorax. No acute bony abnormality seen. No acute aortic findings suspected. IMPRESSION: No acute cardiopulmonary process. No significant interval change.
--- NOTE | 2019-10-22 17:58 | EDPHYS ---
Physician Documentation [facility] Name: Zackary Mandujano Jr Age: 34 yrs Sex: Male : 1985 Arrival Date: 10/22/2019 Time: 14:32 Bed 19 Private MD: ED Physician Garrett Florez HPI: 10/22 15:26 This 34 yrs old Male presents to ER via Ambulatory with complaints of Chest jmm Pain. 15:26 The patient presents with a history of heart racing. Onset: The symptoms/episode jmm began/occurred gradually, 1 week(s) ago. Duration: The patient or guardian reports multiple episodes, that wax and wane, the episodes last approximately 30 minute(s). Modifying factors: The symptoms are aggravated by nothing. The symptoms are alleviated by nothing. Associated signs and symptoms: Pertinent positives: chest pain, unusual stressors, Pertinent negatives: fever, syncope, near-syncope. This is a 34 year old male with a history of anxiety that presents to the ED with complaints of intermittent episodes of palpitations and chest pain over the past week. Episodes occur for approx 30 minutes at a time. Patient denies syncope. . Historical: - Allergies: 14:35 No Known Allergies; aj1 - Home Meds: 14:35 None [Active]; aj1 - PMHx: 14:35 None; aj1 - PSHx: 14:35 None; aj1 - Immunization history:: Flu vaccine is not up to date. - Social history:: Smoking status: Patient denies any tobacco usage or history of. - Ebola Screening: : Patient denies travel to an Ebola-affected area in the 21 days before illness onset. ROS: 15:26 Constitutional: Negative for fever, chills, and weight loss. jmm 15:26 Respiratory: Negative for shortness of breath, cough, wheezing, and pleuritic chest pain, Abdomen/GI: Negative for abdominal pain, nausea, vomiting, diarrhea, and constipation, Neuro: Negative for headache, weakness, numbness, tingling, and seizure. 15:26 Cardiovascular: Positive for chest pain, palpitations. 15:26 All other systems are negative. Exam: 15:26 Constitutional: This is a well developed, well nourished patient who is awake, alert, jmm and in no acute distress. Head/Face: atraumatic. Eyes: EOMI, no conjunctival erythema appreciated ENT: Moist Mucus Membranes Neck: Trachea midline, Supple Chest/axilla: Normal chest wall appearance and motion. Cardiovascular: Regular rate and rhythm. No edema appreciated 15:26 Abdomen/GI: Non distended, soft Back: Normal ROM Skin: General appearance color normal MS/ Extremity: Moves all extremities, no obvious deformities appreciated, no edema noted to the lower extremities Neuro: Awake and alert, normal gait Psych: Behavior is normal, Mood is normal, Patient is cooperative and pleasant 15:26 Cardiovascular: Rate: tachycardic, Rhythm: regular, Pulses: no pulse deficits are appreciated. Vital Signs: 14:35 BP 158 / 91; Pulse 132; Resp 20; Temp 98.5; Pulse Ox 100% on R/A; Weight 113.4 kg (R); aj1 Height 5 ft. 10 in. (177.80 cm) (R); 14:43 Pulse 111; aj1 16:30 BP 123 / 79; Pulse 83; Resp 17; Pulse Ox 98% on R/A; sg 14:35 Body Mass Index 35.87 (113.40 kg, 177.80 cm) aj1 MDM: 15:08 Patient medically screened. norbert 17:52 Data reviewed: vital signs, nurses notes. Counseling: I had a detailed discussion with tyler the patient and/or guardian regarding: the historical points, exam findings, and any diagnostic results supporting the discharge/admit diagnosis, lab results, radiology results, the need for outpatient follow up, to return to the emergency department if symptoms worsen or persist or if there are any questions or concerns that arise at home. ED course: Patient is alert and non toxic in appearance in the ED. Chest pain has resolved. Heart Score = 1. Patient advised to follow up with pcp and cardiology for reevaluation. Patient otherwise given strict return precautions. Patient understood and agrees with the plan of care. . 10/22 15:25 Order name: Basic Metabolic Panel; Complete Time: 16: [facility] 10/22 15:25 Order name: CBC with Diff; Complete Time: 16:06 [facility] 10/22 15:25 Order name: LFT's; Complete Time: 16:20 [facility] 10/22 15:25 Order name: Magnesium; Complete Time: 16:20 [facility] 10/22 15:25 Order name: NT PRO-BNP; Complete Time: 16:20 [facility] 10/22 15:25 Order name: PT-INR; Complete Time: 16:06 [facility] 10/22 15:25 Order name: Troponin (emerg Dept Use Only); Complete Time: 16:20 [facility] 10/22 15:25 Order name: XRAY Chest (1 view); Complete Time: 16:32 [facility] 10/22 15:25 Order name: EKG; Complete Time: 15:26 [facility] 10/22 15:25 Order name: Cardiac monitoring; Complete Time: 15:44 [facility] 10/22 15:25 Order name: IV Saline Lock; Complete Time: 15:44 [facility] 10/22 16:32 Order name: D-Dimer; Complete Time: 17:07 [facility] 10/22 15:25 Order name: Labs collected and sent; Complete Time: 15:44 [facility] 10/22 15:25 Order name: O2 Per Protocol; Complete Time: 15:44 [facility] 10/22 15:25 Order name: O2 Sat Monitoring; Complete Time: 15:44 [facility] 10/22 17:08 Order name: EKG - Nurse/Tech; Complete Time: 17:51 [facility] Administered Medications: 15:44 Drug: NS 0.9% 1000 ml Route: IV; Rate: 1 bolus; Site: right antecubital; sg 16:45 Follow up: Response: No adverse reaction; IV Status: Completed infusion; IV Intake: sg 990ml Disposition: 20:37 Co-signature as Attending Physician, Garrett Florez MD I agree with the assessment and norbert plan of care. Disposition: 10/22/19 17:57 Discharged to Home. Impression: Palpitations, Chest pain, unspecified. - Condition is Stable. - Discharge Instructions: Nonspecific Chest Pain. - Work release form, Medication Reconciliation Form, Thank You Letter, Antibiotic Education, Prescription Opioid Use form. - Follow up: Sorin Shin MD; When: 2 - 3 days; Reason: Recheck today's complaints, Continuance of care, Re-evaluation by your physician. Signatures: Dispatcher [employer] EDChelsey Armas RN RN aj1 Jere Tenorio RN RN sg Anderson, Corey, MD MD cha Mickail, Joel, PA PA [facility] Corrections: (The following items were deleted from the chart) 18:29 17:57 10/22/2019 17:57 Discharged to Home. Impression: Palpitations; Chest pain, sg unspecified. Condition is Stable. Forms are Medication Reconciliation Form, Thank You Letter, Antibiotic Education, Prescription Opioid Use. Follow up: Sorin Shin; When: 2 - 3 days; Reason: Recheck today's complaints, Continuance of care, Re-evaluation by your physician. tyler
--- NOTE | 2019-10-22 17:58 | ER ---
Nurse's Notes [facility] Name: Zackary Mandujano Jr Age: 34 yrs Sex: Male : 1985 Arrival Date: 10/22/2019 Time: 14:32 Bed 19 Private MD: Diagnosis: Palpitations;Chest pain, unspecified Presentation: 10/22 14:33 Presenting complaint: Patient states: "My chest is hurting really bad and I feel like aj1 my heart is beating in my chest" Patient reports that this has been going on for the past week. Denies cough, congestion, fever. Transition of care: patient was not received from another setting of care. Onset of symptoms was 2019. Risk Assessment: Do you want to hurt yourself or someone else? Patient reports no desire to harm self or others. Initial Sepsis Screen: Does the patient meet any 2 criteria? HR > 90 bpm. No. Patient's initial sepsis screen is negative. Does the patient have a suspected source of infection? Yes:. Care prior to arrival: None. 14:33 Method Of Arrival: Ambulatory aj 14:33 Acuity: TOYA 3 aj1 Triage Assessment: 14:35 General: Appears in no apparent distress. uncomfortable, Behavior is calm, cooperative, aj1 appropriate for age. Pain: Complains of pain in mid-sternal area Pain currently is 6 out of 10 on a pain scale. Neuro: Level of Consciousness is awake, alert, obeys commands. Cardiovascular: Reports chest pain, Patient's skin is warm and dry. Respiratory: Airway is patent Respiratory effort is even, unlabored, Respiratory pattern is regular, symmetrical. Historical: - Allergies: 14:35 No Known Allergies; aj1 - Home Meds: 14:35 None [Active]; aj1 - PMHx: 14:35 None; aj1 - PSHx: 14:35 None; aj1 - Immunization history:: Flu vaccine is not up to date. - Social history:: Smoking status: Patient denies any tobacco usage or history of. - Ebola Screening: : Patient denies travel to an Ebola-affected area in the 21 days before illness onset. Screenin:30 Abuse screen: Denies threats or abuse. Denies injuries from another. Nutritional sg screening: No deficits noted. Tuberculosis screening: No symptoms or risk factors identified. Never had TB. Fall Risk None identified. Assessment: 15:44 Reassessment: Patient appears in no apparent distress at this time. sg Vital Signs: 14:35 BP 158 / 91; Pulse 132; Resp 20; Temp 98.5; Pulse Ox 100% on R/A; Weight 113.4 kg (R); aj1 Height 5 ft. 10 in. (177.80 cm) (R); 14:43 Pulse 111; aj1 16:30 BP 123 / 79; Pulse 83; Resp 17; Pulse Ox 98% on R/A; sg 14:35 Body Mass Index 35.87 (113.40 kg, 177.80 cm) aj1 ED Course: 14:32 Patient arrived in ED. mr 14:35 Triage completed. aj1 14:35 Arm band placed on Patient placed in waiting room, Patient notified of wait time. EKG aj1 completed in triage. Results shown to MD. 15:08 Sebastian Mcknight PA is PHCP. [facility] 15:08 Garrett Florez MD is Attending Physician. [facility] 15:14 Jere Tenorio, JAMES is Primary Nurse. sg 15:15 Patient has correct armband on for positive identification. Bed in low position. Call sg light in reach. Side rails up X 1. cafeteria monitor on. Pulse ox on. NIBP on. 15:30 No provider procedures requiring assistance completed. Initial lab(s) drawn, by sc, sg sent to lab. Inserted saline lock: 20 gauge in right antecubital area, using aseptic technique. Blood collected. Patient maintains SpO2 saturation greater than 95% on room air. 15:37 XRAY Chest (1 view) In Process Unspecified. EDMS 17:57 Sorin Shin MD is Referral Physician. jmm 18:15 IV discontinued, intact, bleeding controlled, No redness/swelling at site. Pressure sg dressing applied. Administered Medications: 15:44 Drug: NS 0.9% 1000 ml Route: IV; Rate: 1 bolus; Site: right antecubital; sg 16:45 Follow up: Response: No adverse reaction; IV Status: Completed infusion; IV Intake: sg 990ml Intake: 16:45 IV: 990ml; Total: 990ml. sg Outcome: 17:57 Discharge ordered by . [facility] 18:15 Discharged to home ambulatory. sg 18:15 Condition: stable 18:15 Discharge instructions given to patient, Instructed on discharge instructions, follow up and referral plans. medication usage, Demonstrated understanding of instructions, follow-up care, medications. 18:29 Patient left the ED. sg Signatures: Dispatcher [employer] EDChelsey Armas RN RN aj1 Jere Tenorio RN RN sg Sebastian Mcknight PA PA jmm Rivera, Mary mr Corrections: (The following items were deleted from the chart) 14:43 14:33 Acuity: TOYA 2 aj1 aj1
[2019-10-22 18:56] VITALS: TEMP 98.5
[2019-10-22 19:00] VITALS: BP 123/79; O2SAT 98
--- NOTE | 2019-10-24 14:04 | EKG ---
Test Date: 2019-10-22 Test Time: 14:42:03 Pickle Sorter: LYNNETTE MEASUREMENT RESULTS: Intervals: Rate: 110 [place]: 158 QRSD: 92 QT: 326 QTc: 441 [place]: P: 33 [place]: 158 QRS: -10 T: 22 INTERPRETIVE STATEMENTS: Sinus tachycardia Nonspecific ST abnormality Abnormal ECG Compared to ECG 03/29/2019 18:44:45 ST (T wave) deviation now present Sinus rhythm no longer present T-wave abnormality no longer present Electronically Signed On 10-24-19 13:59:47 TELEPHONE DIAPHRAGM ASSEMBLER by Sorin Shin
--- NOTE | 2019-10-24 14:04 | EKG ---
Test Date: 2019-10-22 Test Time: 17:45:44 Entertainment Director: XIANG MEASUREMENT RESULTS: Intervals: Rate: 79 [place]: 150 QRSD: 96 QT: 362 QTc: 415 [place]: P: 38 [place]: 150 QRS: 6 T: 9 INTERPRETIVE STATEMENTS: Normal sinus rhythm Nonspecific T wave abnormality Abnormal ECG Compared to ECG 10/22/2019 14:42:03 T-wave abnormality now present Sinus tachycardia no longer present ST (T wave) deviation no longer present Electronically Signed On 10-24-19 13:59:42 CADASTRAL ENGINEER by Sorin Shin
== END 2019-10-22 18:29 | disposition home or self-care (01) ==
LOC: ER 14:28
DX: R00.2 Palpitations (principal)
CPT/HCPCS: 36415; 71045; 80048; 80076; 83735; 83880; 84484; 85025; 85379; 85610; 93005; 96360; 99285; J7030

== ENCOUNTER 2020-12-27 09:54 | Emergency (ER) | payer SELFPAY ==
--- OUTSIDE RECORDS SUMMARY | 2020-12-27 09:56 | XMS REPORT | Continuity of Care Document ---
:1985 Author Organization [facility] t Address [facility] [place] [address] Care Team Providers Name Role Phone Unavailable Unavailable Unavailable Problems This patient has no known problems. Allergies, Adverse Reactions, Alerts This patient has no known allergies or adverse reactions. Medications This patient has no known medications. Procedures This patient has no known procedures. Encounters Start End Encounter Admission Attending Care Care Encounter Source Date/Time Date/Time Type Type Clinicians Facility Department ID 2019-12-07 2019-12-07 Emergency E [id number] 04:36:00 04:36:00 Results This patient has no known results.
--- NOTE | 2020-12-27 12:37 | RAD REPORT ---
EXAM DESCRIPTION: CT - Head Brain Wo Cont - 12/27/2020 12:06 pm CLINICAL HISTORY: Headache COMPARISON: 2019 TECHNIQUE: Computed axial tomography of the head was obtained. IV contrast was not requested. All CT scans are performed using dose optimization technique as appropriate and may include automated exposure control or mA/KV adjustment according to patient size. FINDINGS: An intracranial bleed is not seen . The ventricles are normal in caliber. No extra-axial fluid collection is noted. Fluid within the sinuses/ mastoids is not seen. IMPRESSION: No acute intracranial abnormality is seen. If patient's symptoms persist MRI of the bra in would be recommended.
[2020-12-27 13:12] LABS: SARS-COV-2 RT PCR POSITIVE (NEGATIVE)
[2020-12-27] MEDS ORDERED: ONDANSETRON 4 MG/2 ML VIAL ONE (13:54)
[2020-12-27] MEDS ORDERED: KETOROLAC 30 MG/ML INJ ONE (13:54)
[2020-12-27] MEDS ORDERED: NA CHLORIDE 0.9% 1,000 ML ONE (13:55)
--- NOTE | 2020-12-27 13:59 | ER ---
Nurse's Notes [facility] Name: Zackary Mandujano Jr Age: 35 yrs Sex: Male : 1985 Arrival Date: 12/27/2020 Time: 09:55 Bed 3 Private MD: Diagnosis: Coronavirus infection, unspecified Presentation: 12/27 10:26 Chief complaint: Patient states: Sinus pressure behind my eyes x 5 days. When I wake ca1 up, it's like my eyes hurt then today I feel like I was starting to run a fever. Denies cough and congestion. Coronavirus screen: Client denies travel out of the [place] in the last 14 days. At this time, the client does not indicate any symptoms associated with coronavirus-19. Ebola Screen: Patient negative for fever greater than or equal to 101.5 degrees Fahrenheit, and additional compatible Ebola Virus Disease symptoms Patient denies exposure to infectious person. Patient denies travel to an Ebola-affected area in the 21 days before illness onset. No symptoms or risks identified at this time. Initial Sepsis Screen: Does the patient meet any 2 criteria? No. Patient's initial sepsis screen is negative. Does the patient have a suspected source of infection? No. Patient's initial sepsis screen is negative. Risk Assessment: Do you want to hurt yourself or someone else? Patient reports no desire to harm self or others. Onset of symptoms was December 27, 2020. 10:26 Method Of Arrival: Ambulatory ca1 10:26 Acuity: TOYA 3 ca1 Historical: - Allergies: 10:29 No Known Allergies; ca1 - Home Meds: 10:29 None [Active]; ca1 - PMHx: 10:29 None; ca1 - PSHx: 10:29 None; ca1 - Immunization history:: Flu vaccine is not up to date. - Social history:: Smoking status: Patient/guardian denies using tobacco, the patient reports quitting approximately 1 years ago. Screenin:57 Abuse screen: Denies threats or abuse. Denies injuries from another. Nutritional ld1 screening: No deficits noted. Tuberculosis screening: No symptoms or risk factors identified. Fall Risk None identified. Assessment: 11:57 General: Appears in no apparent distress. comfortable, well groomed, well developed, ld1 well nourished, Behavior is calm, cooperative, appropriate for age. Pain: Complains of pain in right eye, left eye and nose Pain currently is 0 out of 10 on a pain scale. Quality of pain is described as pressure, Pain began 2-3 days ago. Alleviated by medications. Neuro: Level of Consciousness is awake, alert, obeys commands, Oriented to person, place, time, situation, Moves all extremities. Full function Gait is steady, Speech is normal, Facial symmetry appears normal, Denies blurred vision. 11:57 Cardiovascular: Patient's skin is warm and dry. Respiratory: Airway is patent ld1 Respiratory effort is even, unlabored, Respiratory pattern is regular, symmetrical, Denies shortness of breath. EENT: Denies blurred vision. Derm: Skin is pink, warm \T\ dry. 13:00 Reassessment: Patient appears in no apparent distress at this time. No changes from jl7 previously documented assessment. Patient and/or family updated on plan of care and expected duration. Pain level reassessed. Patient is alert, oriented x 3, equal unlabored respirations, skin warm/dry/pink. Vital Signs: 10:26 BP 133 / 98; Pulse 86; Resp 16; Temp 97.9(TE); Pulse Ox 98% on R/A; Weight 111.13 kg ca1 (R); Height 5 ft. 10 in. (177.80 cm) (R); Pain 0/10; 11:57 BP 125 / 80; Pulse 73; Resp 17; Pulse Ox 99% ; Pain 0/10; ld1 12:39 BP 124 / 82; Pulse 72; Resp 17; Pulse Ox 100% on R/A; tw2 10:26 Body Mass Index 35.15 (111.13 kg, 177.80 cm) ca1 [place] Coma Score: 13:28 Eye Response: spontaneous(4). Verbal Response: oriented(5). Motor Response: obeys kb commands(6). Total: 15. ED Course: 09:55 Patient arrived in ED. as 10:29 Triage completed. ca1 10:29 Arm band placed on right wrist. ca1 11:38 Kim Rios RN is Primary Nurse. jl7 11:45 Amie Liu FNP-C is [facility]. kb 11:45 Bahman Hollins MD is Attending Physician. kb 11:57 Patient has correct armband on for positive identification. Bed in low position. Call ld1 light in reach. Side rails up X 1. Pulse ox on. NIBP on. 11:57 COVID swab sent to lab. ld1 12:06 CT Head Brain wo Cont In Process Unspecified. EDMS 13:18 Notified Nurse Practitioner and/or Physician Single Pass Soil Stabilizer Operator of a critical lab result(s), pt tw2 is COVID POSITIVE per Luis Wheat in lab. 14:34 No provider procedures requiring assistance completed. Patient did not have IV access jl7 during this emergency room visit. Administered Medications: No medications were administered Outcome: 13:23 Discharge ordered by . nia 14:34 Discharged to home ambulatory. jl7 14:34 Condition: stable 14:34 Discharge instructions given to patient, Instructed on discharge instructions, follow up and referral plans. Demonstrated understanding of instructions, follow-up care. 14:35 Patient left the ED. jl7 Signatures: Dispatcher [employer] EDMS Amie Liu, BARREL DRILLER-C BARREL DRILLER-Jeanette Hernandez Tara RN RN tw2 Kim Rios RN RN jl7 Alyson Hawkins, RN RN ca1 Renata Leggett RN RN ld1
--- NOTE | 2020-12-27 13:59 | EDPHYS ---
Physician Documentation [facility] Name: Zackary Mandujano Jr Age: 35 yrs Sex: Male : 1985 Arrival Date: 12/27/2020 Time: 09:55 Bed 3 Private MD: ED Physician Bahman Hollins HPI: 12/27 13:32 This 35 yrs old Male presents to ER via Ambulatory with complaints of kb Headache, Eye Pain. 13:32 The patient complains of pain to the forehead. The patient describes the headache as kb constant. Onset: The symptoms/episode began/occurred 4 day(s) ago. Associated signs and symptoms: The patient has no apparent associated signs or symptoms. Severity of symptoms: At its worst the pain was moderate, in the emergency department the pain is unchanged. Headache History: Denies prior headaches. The symptoms are alleviated by nothing. the symptoms are aggravated by nothing. The patient has not experienced similar symptoms in the past. The patient has not recently seen a physician. Pt reports headache, pressure behind eyes, and slight cough for 4 days. Denies fever, shortness of breath, confusion. Historical: - Allergies: 10:29 No Known Allergies; ca1 - Home Meds: 10:29 None [Active]; ca1 - PMHx: 10:29 None; ca1 - PSHx: 10:29 None; ca1 - Immunization history:: Flu vaccine is not up to date. - Social history:: Smoking status: Patient/guardian denies using tobacco, the patient reports quitting approximately 1 years ago. ROS: 13:28 Constitutional: Negative for fever, chills, and weight loss, Cardiovascular: Negative kb for chest pain, palpitations, and edema, Abdomen/GI: Negative for abdominal pain, nausea, vomiting, diarrhea, and constipation, MS/Extremity: Negative for injury and deformity, Skin: Negative for injury, rash, and discoloration. 13:28 Respiratory: Positive for cough, Negative for dyspnea on exertion, hemoptysis, orthopnea, pleurisy, shortness of breath, sputum production, wheezing. 13:28 Neuro: Positive for headache. Exam: 13:28 Constitutional: This is a well developed, well nourished patient who is awake, alert, kb and in no acute distress. Head/Face: Normocephalic, atraumatic. Eyes: Pupils equal round and reactive to light, extra-ocular motions intact. Lids and lashes normal. Conjunctiva and sclera are non-icteric and not injected. Cornea within normal limits. Periorbital areas with no swelling, redness, or edema. Respiratory: Respirations even and unlabored. No increased work of breathing, no retractions or nasal flaring. Skin: Warm, dry with normal turgor. Normal color. MS/ Extremity: Pulses equal, no cyanosis. Neurovascular intact. Full, normal range of motion. Neuro: Awake and alert, GCS 15, oriented to person, place, time, and situation. Moves all extremities. Normal gait. 13:28 Head/face: Sinus tenderness, that is moderate, is located over the right ethmoid sinus, left ethmoid sinus, right maxillary sinus and left maxillary sinus. 13:28 ENT: TM's: fluid levels, on the right. Vital Signs: 10:26 BP 133 / 98; Pulse 86; Resp 16; Temp 97.9(TE); Pulse Ox 98% on R/A; Weight 111.13 kg ca1 (R); Height 5 ft. 10 in. (177.80 cm) (R); Pain 0/10; 11:57 BP 125 / 80; Pulse 73; Resp 17; Pulse Ox 99% ; Pain 0/10; ld1 12:39 BP 124 / 82; Pulse 72; Resp 17; Pulse Ox 100% on R/A; tw2 10:26 Body Mass Index 35.15 (111.13 kg, 177.80 cm) ca1 [place] Coma Score: 13:28 Eye Response: spontaneous(4). Verbal Response: oriented(5). Motor Response: obeys kb commands(6). Total: 15. MDM: 11:45 Patient medically screened. kb 13:28 Data reviewed: vital signs, nurses notes. Data interpreted: Pulse oximetry: on room air kb is 100 %. Interpretation: normal. Counseling: I had a detailed discussion with the patient and/or guardian regarding: the historical points, exam findings, and any diagnostic results supporting the discharge/admit diagnosis, lab results, radiology results, the need for outpatient follow up, a family practitioner, to return to the emergency department if symptoms worsen or persist or if there are any questions or concerns that arise at home. 12/27 11:51 Order name: CT Head Brain wo Cont; Complete Time: 12:39 kb 12/27 13:22 Order name: COVID-19/FLU A+B; Complete Time: 13:23 EDMS Administered Medications: No medications were administered Disposition: 12/28 07:59 Co-signature as Attending Physician, Bahman Hollins MD I agree with the assessment and kdr plan of care. Disposition: 12/27/20 13:23 Discharged to Home. Impression: Coronavirus infection, unspecified. - Condition is Stable. - Discharge Instructions: Viral Respiratory Infection, [id number], COVID-19. - Medication Reconciliation Form, Thank You Letter, Antibiotic Education, Prescription Opioid Use, Work release form form. - Follow up: Emergency Department; When: As needed; Reason: Worsening of condition. Follow up: Private Physician; When: 2 - 3 days; Reason: Recheck today's complaints, Continuance of care, Re-evaluation by your physician. Signatures: Dispatcher [employer] EDNV Amie Liu, CLINICAL TRIAL SPECIALIST-C CLINICAL TRIAL SPECIALIST-Bahman Bonner MD MD kdr Kim Rios RN RN jl7 Alyson Hawkins, RN RN ca1 Corrections: (The following items were deleted from the chart) 12/27 12:10 11:52 CORONAVIRUS+MR.LAB.BRZ ordered. [facility] EDNV 12:10 11:52 Influenza Screen (A \T\ B)+BA.LAB.BRZ ordered. [facility] EDMS 14:35 13:23 12/27/2020 13:23 Discharged to Home. Impression: Coronavirus infection, jl7 unspecified. Condition is Stable. Forms are Work release form, Medication Reconciliation Form, Thank You Letter, Antibiotic Education, Prescription Opioid Use. Follow up: Emergency Department; When: As needed; Reason: Worsening of condition. Follow up: Private Physician; When: 2 - 3 days; Reason: Recheck today's complaints, Continuance of care, Re-evaluation by your physician. kb
[2020-12-27 15:05] VITALS: TEMP 97.9
[2020-12-27 15:08] VITALS: BP 124/82; O2SAT 100
== END 2020-12-27 14:35 | disposition home or self-care (01) ==
LOC: ER 09:54
DX: U07.1 COVID-19 (principal); Z87.891 Personal history of nicotine dependence
CPT/HCPCS: 0240U; 70450; 99283; J2405; J7030

== ENCOUNTER 2022-02-21 06:39 | Observation (INO) | payer SELFPAY ==
--- OUTSIDE RECORDS SUMMARY | 2022-02-21 06:42 | XMS REPORT | Continuity of Care Document ---
:1985 Author Organization [facility] t Address [address] [place] [address] [address] [place] [address] Care Team Providers Name Role Phone KATHARINE RUIZ Attending Clinician Unavailable Problems This patient has no known problems. Allergies, Adverse Reactions, Alerts This patient has no known allergies or adverse reactions. Medications This patient has no known medications. Procedures This patient has no known procedures. Encounters Start End Encounter Admission Attending Care Care Encounter Source Date/Time Date/Time Type Type Clinicians Facility Department ID 2019-12-07 2019-12-07 Emergency E SAADIA RUIZ [facility] [id number] 04:36:00 04:36:00 KATHARINE Results This patient has no known results.
--- NOTE | 2022-02-21 08:17 | RAD REPORT ---
EXAM DESCRIPTION: US - Abdomen Exam Limited - 02/21/2022 8:06 am CLINICAL HISTORY: ABD PAIN COMPARISON: CTSTONE PROTOCOL dated 01/26/2013 FINDINGS: Several small sub centimeter gallstones are identifiable. No large polyp or mass seen. Wal l thickening is seen without pericholecystic fluid. Common bile duct is normal size with no duct ston e identifiable. IMPRESSION: Cholelithiasis with gallbladder wall thickening. Correlation is needed with any acute ch olecystitis clinical findings. No duct stone or biliary tree dilatation.
[2022-02-21 08:28] LABS: Hematocrit 44.9 % (39.6-49.0); Lymphocytes % 28.3 % (15.3-44.8); MPV 8.2 fL (7.6-11.3); RBC Red Blood Cell Count 5.22 M/uL (4.33-5.43)
[2022-02-21] MEDS ORDERED: ONDANSETRON 4 MG/2 ML VIAL ONE ×3 (08:30→13:37)
[2022-02-21] MEDS ORDERED: NA CHLORIDE 0.9% 1,000 ML ONE (08:30)
[2022-02-21] MEDS ORDERED: FAMOTIDINE 20 MG/2 ML VIAL IV ONE (08:31)
[2022-02-21 08:47] LABS: Albumin 3.8 g/dL (3.4-5.0); Bilirubin Total 1.3 mg/dL (0.2-1.0); Potassium 4.1 mmol/L (3.5-5.1); Protein, Total 7.6 g/dL (6.4-8.2)
--- NOTE | 2022-02-21 09:02 | ER ---
Nurse's Notes [facility] Name: Zackary Mandujano Jr Age: 36 yrs Sex: Male : 1985 Arrival Date: 02/21/2022 Time: 06:43 Bed External Waiting Private MD: Diagnosis: Cholecystitis, unspecified;Other cholelithiasis with obstruction;Abdominal tenderness Presentation: 02/21 06:53 Chief complaint: Patient states: "I started having abdominal pain Friday and today it jb4 is worse it hurts when I eat or drink anything. It feels like I have gas trapped that won't come out.". Coronavirus screen: Vaccine status: Patient reports receiving the 1st dose of the Covid vaccine. Pfizer muscle pain, At this time, the client does not indicate any symptoms associated with coronavirus-19. Ebola Screen: No symptoms or risks identified at this time. Initial Sepsis Screen: Does the patient meet any 2 criteria? No. Patient's initial sepsis screen is negative. Does the patient have a suspected source of infection? No. Patient's initial sepsis screen is negative. Risk Assessment: Do you want to hurt yourself or someone else? Patient reports no desire to harm self or others. Onset of symptoms was February 18, 2022. 06:53 Method Of Arrival: Ambulatory jb4 06:53 Acuity: TOYA 3 jb4 Triage Assessment: 06:56 General: Appears in no apparent distress. uncomfortable, Behavior is calm, cooperative, jb4 appropriate for age. Pain: Complains of pain in right upper quadrant Pain does not radiate. Pain currently is 7 out of 10 on a pain scale. at worst was 10 out of 10 on a pain scale. Quality of pain is described as Feels hot. GI: Abdomen is flat, non-distended, Abd is soft Abdomen is tender to palpation in right lower quadrant. Historical: - Allergies: 06:56 No Known Allergies; jb4 - Home Meds: 06:56 None [Active]; jb4 - PMHx: 06:56 None; jb4 - PSHx: 06:56 None; jb4 - Immunization history:: Adult Immunizations up to date, Client reports receiving the 1st dose of the Covid vaccine. - Social history:: Smoking status: Patient reports the use of cigarette tobacco products, denies chronic smoking, but will smoke occasionally. - Family history:: not pertinent. Screenin:58 Abuse screen: Denies threats or abuse. Nutritional screening: No deficits noted. jb4 Tuberculosis screening: No symptoms or risk factors identified. Fall Risk None identified. Vital Signs: 06:53 BP 155 / 78; Pulse 76; Resp 18; Temp 97.7; Pulse Ox 98% ; Weight 116.57 kg; Height 5 jb4 ft. 10 in. (177.80 cm); Pain 7/10; 06:53 Body Mass Index 36.88 (116.57 kg, 177.80 cm) jb4 ED Course: 06:43 Patient arrived in ED. bp1 06:56 Triage completed. jb4 06:58 Arm band placed on. jb4 06:59 Patient has correct armband on for positive identification. jb4 07:24 Garrett Florez MD is Attending Physician. norbert 08:07 Abdomen Limited US In Process Unspecified. EDMS 08:23 Leyda Holguin, RN is Primary Nurse. iw 09:00 Matt Neely MD is Hospitalizing Provider. norbert 09:08 CT Abd/Pelvis - IV Contrast Only In Process Unspecified. EDMS Administered Medications: 08:30 Drug: NS 0.9% 1000 ml Route: IV; Rate: 1 bolus; Site: right antecubital; iw 09:30 Follow up: IV Status: Completed infusion iw 08:30 Drug: Pepcid (famotidine) 20 mg Route: IVP; Site: right antecubital; iw 08:45 Follow up: Response: No adverse reaction iw 08:31 Not Given (Patient Refused): morphine 2 mg IVP once; (PAIN>8) RASS on ADMN: Combtv4, iw Very Agttd3, Agttd2, Rstlss1, AlertClm0, Drwsy-1, LtSdtn-2, ModSdtn-3, DpSdtn-4, UnArsble-5 x2 10:22 Not Given (sent to [facility]): Zosyn (piperacillin-tazobactam) 3.375 grams IVPB once over 60 iw mins; (mix in NS 100 mL) Outcome: 09:02 Decision to Hospitalize by Provider. norbert 11:55 Patient left the ED. ld1 Signatures: Dispatcher [employer] EDMS Garrett Florez MD MD cha Williams, Irene, RN RN iw Matt Vincent, RN RN jb4 Haily Garland Lauren, RN RN ld1
--- NOTE | 2022-02-21 09:03 | EDPHYS ---
Physician Documentation [facility] Name: Zackary Mandujano Jr Age: 36 yrs Sex: Male : 1985 Arrival Date: 02/21/2022 Time: 06:43 Bed External Waiting Private MD: OCHOA Physician Garrett Florez HPI: 02/21 07:44 This 36 yrs old Male presents to ER via Ambulatory with complaints of norbert Abdominal Pain. 07:44 The patient presents with abdominal pain in the right upper quadrant, right lower norbert quadrant. Onset: The symptoms/episode began/occurred 3 day(s) ago. The symptoms do not radiate. Associated signs and symptoms: none. Modifying factors: The symptoms are alleviated by nothing, the symptoms are aggravated by food. Severity of pain: At its worst the pain was moderate 3 day(s) ago. The patient has not experienced similar symptoms in the past. Historical: - Allergies: 06:56 No Known Allergies; jb4 - Home Meds: 06:56 None [Active]; jb4 - PMHx: 06:56 None; jb4 - PSHx: 06:56 None; jb4 - Immunization history:: Adult Immunizations up to date, Client reports receiving the 1st dose of the Covid vaccine. - Social history:: Smoking status: Patient reports the use of cigarette tobacco products, denies chronic smoking, but will smoke occasionally. - Family history:: not pertinent. ROS: 07:44 Constitutional: Negative for fever, chills, and weight loss, Eyes: Negative for injury, norbert pain, redness, and discharge, ENT: Negative for injury, pain, and discharge, Neck: Negative for injury, pain, and swelling, Cardiovascular: Negative for chest pain, palpitations, and edema, Respiratory: Negative for shortness of breath, cough, wheezing, and pleuritic chest pain, Back: Negative for injury and pain, : Negative for injury, bleeding, discharge, and swelling, MS/Extremity: Negative for injury and deformity, Skin: Negative for injury, rash, and discoloration, Neuro: Negative for headache, weakness, numbness, tingling, and seizure, Psych: Negative for depression, anxiety, suicide ideation, homicidal ideation, and hallucinations, Allergy/Immunology: Negative for hives, rash, and allergies, Endocrine: Negative for neck swelling, polydipsia, polyuria, polyphagia, and marked weight changes, Hematologic/Lymphatic: Negative for swollen nodes, abnormal bleeding, and unusual bruising. 07:44 Abdomen/GI: Positive for abdominal pain, nausea, of the right upper quadrant and right lower quadrant. Exam: 07:44 Constitutional: This is a well developed, well nourished patient who is awake, alert, norbert and in no acute distress. Head/Face: Normocephalic, atraumatic. Eyes: Pupils equal round and reactive to light, extra-ocular motions intact. Lids and lashes normal. Conjunctiva and sclera are non-icteric and not injected. Cornea within normal limits. Periorbital areas with no swelling, redness, or edema. ENT: Nares patent. No nasal discharge, no septal abnormalities noted. Tympanic membranes are normal and external auditory canals are clear. Oropharynx with no redness, swelling, or masses, exudates, or evidence of obstruction, uvula midline. Mucous membranes moist. Neck: Trachea midline, no thyromegaly or masses palpated, and no cervical lymphadenopathy. Supple, full range of motion without nuchal rigidity, or vertebral point tenderness. No Meningismus. Chest/axilla: Normal chest wall appearance and motion. Nontender with no deformity. No lesions are appreciated. Cardiovascular: Regular rate and rhythm with a normal S1 and S2. No gallops, murmurs, or rubs. Normal PMI, no JVD. No pulse deficits. Respiratory: Lungs have equal breath sounds bilaterally, clear to auscultation and percussion. No rales, rhonchi or wheezes noted. No increased work of breathing, no retractions or nasal flaring. Back: No spinal tenderness. No costovertebral tenderness. Full range of motion. Male : Normal genitalia with no discharge or lesions. Skin: Warm, dry with normal turgor. Normal color with no rashes, no lesions, and no evidence of cellulitis. MS/ Extremity: Pulses equal, no cyanosis. Neurovascular intact. Full, normal range of motion. Neuro: Awake and alert, GCS 15, oriented to person, place, time, and situation. Cranial nerves II-XII grossly intact. Motor strength 5/5 in all extremities. Sensory grossly intact. Cerebellar exam normal. Normal gait. Psych: Awake, alert, with orientation to person, place and time. Behavior, mood, and affect are within normal limits. 07:44 Abdomen/GI: Inspection: distension, that is mild, Bowel sounds: normal, Palpation: moderate abdominal tenderness, in the right upper quadrant and right lower quadrant, Liver: no appreciated palpable abnormalities, Hernia: not appreciated. Vital Signs: 06:53 BP 155 / 78; Pulse 76; Resp 18; Temp 97.7; Pulse Ox 98% ; Weight 116.57 kg; Height 5 jb4 ft. 10 in. (177.80 cm); Pain 7/10; 06:53 Body Mass Index 36.88 (116.57 kg, 177.80 cm) jb4 MDM: 07:24 Patient medically screened. [facility] 07:46 Differential diagnosis: bowel obstruction, cholecystitis, Cholelithiasis, norbert diverticulitis, gastritis, gastroesophageal reflux disease, non-specific abd pain, pancreatitis, Peptic Ulcer Disease. Data reviewed: vital signs, nurses notes, lab test result(s), radiologic studies, CT scan, ultrasound. Data interpreted: pvc monitor: rate is 76 beats/min, rhythm is regular, Pulse oximetry: on room air is 98 %. Counseling: I had a detailed discussion with the patient and/or guardian regarding: the historical points, exam findings, and any diagnostic results supporting the discharge/admit diagnosis, lab results, radiology results. 02/21 07:44 Order name: CBC with Diff; Complete Time: 08:48 [facility] 02/21 07:44 Order name: CMP; Complete Time: 08:48 [facility] 02/21 07:44 Order name: Lipase; Complete Time: 08:48 [facility] 02/21 07:44 Order name: Abdomen Limited US; Complete Time: 08:22 [facility] 02/21 07:44 Order name: CT Abd/Pelvis - IV Contrast Only [facility] 02/21 09:17 Order name: SARS-COV-2 RT PCR (Document "Date of Onset" if Symptomatic) [facility] 02/21 07:44 Order name: IV Saline Lock; Complete Time: 08:21 [facility] 02/21 07:44 Order name: Labs collected and sent; Complete Time: 08:21 [facility] Administered Medications: 08:30 Drug: NS 0.9% 1000 ml Route: IV; Rate: 1 bolus; Site: right antecubital; iw 09:30 Follow up: IV Status: Completed infusion iw 08:30 Drug: Pepcid (famotidine) 20 mg Route: IVP; Site: right antecubital; iw 08:45 Follow up: Response: No adverse reaction iw 08:31 Not Given (Patient Refused): morphine 2 mg IVP once; (PAIN>8) RASS on ADMN: Combtv4, iw Very Agttd3, Agttd2, Rstlss1, AlertClm0, Drwsy-1, LtSdtn-2, ModSdtn-3, DpSdtn-4, UnArsble-5 x2 10:22 Not Given (sent to [facility]): Zosyn (piperacillin-tazobactam) 3.375 grams IVPB once over 60 iw mins; (mix in NS 100 mL) Disposition Summary: 02/21/22 09:02 Hospitalization Ordered Hospitalization Status: Observation norbert Provider: Matt Neely cha Location: Telemetry/MedSurg (observation) norbert Condition: Stable norbert Problem: new norbert Symptoms: have improved norbert Bed/Room Type: Standard norbert Room Assignment: norbert Diagnosis - Cholecystitis, unspecified norbert - Other cholelithiasis with obstruction norbert - Abdominal tenderness norbert Forms: - Medication Reconciliation Form norbert - SBAR form norbert Signatures: Dispatcher [employer] Garrett Mccartney MD MD cha Williams, Irene, RN Matt Rivera RN RN Ameena Vaca FNP FNP 7
--- NOTE | 2022-02-21 09:41 | RAD REPORT ---
EXAM DESCRIPTION: CT - Abdomen Pelvis W Contrast - 02/21/2022 9:06 am CLINICAL HISTORY: RLQ abdominal pain COMPARISON: No comparisons TECHNIQUE: Biphasic, helical CT imaging of the abdomen and pelvis was performed following 100 ml non -ionic IV contrast. No oral contrast administered All CT scans are performed using dose optimization technique as appropriate and may include automated exposure control or mA/KV adjustment according to patient size. FINDINGS: No suspicious findings in the lung bases. Diffuse fatty infiltration of the liver present with no focal liver lesion. No portal vein abnormalit y. No pancreatic or splenic abnormality seen. Gallbladder and biliary tree are also without suspiciou s finding. Symmetric renal function is seen with no hydronephrosis or suspicious renal mass. No pyelonephritis o r acute parenchymal process. No bladder abnormalities. No adrenal abnormalities. No stomach or small bowel abnormality seen. Appendix is normal. Moderate stool volume seen in most of the colon. There is a large stool volume distending the rectum. No mass or acute colon process ident ified. No free air, free fluid or inflammatory stranding. No mass or bulky lymphadenopathy. A minima l fat only right inguinal hernia is present. The small amount of herniated fat shows no congestion or edema. No abdominal wall hematoma or focal abnormality. A very small 10 mm diameter umbilical hernia present. No suspicious bony findings. IMPRESSION: No appendicitis or other emergent CT abdomen or pelvis finding. Patient does have a small fat only right inguinal hernia. A herniated fat shows no congestion or jethro a. Large stool volume distending the rectum. Diffuse fatty infiltration of the liver.
[2022-02-21] MEDS ORDERED: FENTANYL CITR 100 MCG/2 ML ONE ×2 (10:22→12:05)
[2022-02-21] MEDS ORDERED: propofoL 200 MG/20 ML VIAL IV ONE (10:22)
[2022-02-21] MEDS ORDERED: MIDAZOLAM HCL 2 MG/2 ML INJ ONE (10:22)
[2022-02-21] MEDS ORDERED: ROCURONIUM 50 MG/5 ML VIAL IV ONE ×2 (10:23→12:07)
[2022-02-21] MEDS ORDERED: dexAMETHasone 10 MG/ML VIAL ONE (10:23)
[2022-02-21] MEDS ORDERED: LIDOCAINE 1% MPF 5 ML VIAL ONE (10:23)
[2022-02-21] MEDS: Ringers Lactate 1,000 ML IV ONE ×2 (10:30→10:41)
[2022-02-21] MEDS ORDERED: NA CIT/CITRIC AC 30 ML ORAL UDC ONE (10:47)
[2022-02-21] MEDS: CEFOXITIN SODIUM 1 GM/VIAL ONE ×4 (11:24→11:45)
[2022-02-21] MEDS: BUPIVACAINE 0.5% Inj,MDV 50 mL VIAL ONE ×2 (11:25→11:52)
--- NOTE | 2022-02-21 11:27 | P.HP ---
Date of Service: 02/21/22 PC: This 36-year-old male presented to the emergency room with severe right upper quadrant abdominal pain for diagnosis and treatment. HPC: Patient has been experiencing some abdominal discomfort over the last few weeks. Today noticed he was having increased right-sided abdominal pain. Located up under his ribs. Hurts when he took a deep breath. PSHx: Negative PMHx: No known medical problems Social Hx: No known allergies Sys R: No cough, wheeze, shortness of breath. No chest pain or palpitations. Denies any urinary complaints. Says he suffers from mild anxiety [not on any medication however for this] O/E: Awake alert vital signs are stable HEENT: Nonicteric Chest: Chest movement equal bilaterally Abd: Abdomen mildly distended, has some right upper quadrant tenderness Grawn: Intact Data: Cultures balance supports clinical diagnosis of acute cholecystitis with cholelithiasis Impression: Cholecystitis with cholelithiasis, biliary colic Plan: I will take him to the operating room for laparoscopic possible open cholecystectomy. The risks of this procedure have been discussed. The possibility of bleeding, infection, injury to bile ducts blood vessels and intestines has been described. The possible need for an open and/or further surgeries and procedures was described. He understands and wants us to proceed.
[2022-02-21] MEDS ORDERED: Ringers Lactate 1,000 ML IV ONE (12:00)
[2022-02-21] MEDS ORDERED: KETOROLAC 30 MG/ML INJ ONE (12:33)
[2022-02-21] MEDS ORDERED: GLYCOPYRROLATE 0.2 MG/ML SYR ONE (12:34)
[2022-02-21] MEDS ORDERED: NEOSTIGMINE 1 MG/ML -10 ML VIAL ONE (12:34)
--- NOTE | 2022-02-21 13:17 | RAD REPORT ---
EXAM DESCRIPTION: RAD - Cholangiogram Oper-Xray Or - 02/21/2022 1:09 pm CLINICAL HISTORY: LAP COLLEEN WITH IOC COMPARISON: Abdomen Pelvis W Contrast dated 02/21/2022 FINDINGS: Cystic duct was injected by operating surgeon. Biliary tree is normal in caliber. No commo n bile duct stone is seen. Total fluoro time: 0.2 minutes. Eight fluoroscopic images are submitted.
--- NOTE | 2022-02-21 13:22 | P.OP ---
Preoperative diagnosis: Cholecystitis with cholelithiasis, biliary colic Postoperative diagnosis: The same Primary procedure: Laparoscopic cholecystectomy Secondary procedure: Cholangiogram Other procedure(s): Tap block Anesthesia: General Estimated blood loss: Less than 10 cc Specimen: Gallbladder and contents Operative Technique: The patient brought the operating room and placed supine on the table. After the induction of adequate general, endotracheal, anesthesia attention was turned towards the umbilicus. A subumbilical incision was made. Using a hemostat this was brought down through the skin and subcutaneous tissue. Just at the umbilicus we were able to use the Veress needle to allow access to the peritoneal cavity. Having done a hanging drop present, and seen the indicator go off as we click through the peritoneum a pneumoperitoneum was created to approximately 12 mmHg. Under direct vision again a hemostat was used to gently dissect away the midline. A finger was used to probe into the peritoneal cavity. The 10 mm blunt trocar was now was now placed into the peritoneal cavity. A 5 mm trocar was placed in the upper midline, and 2 other 5 mm on the right lateral side of the peritoneal cavity. With the patient placed in reverse Trendelenburg and rolled to the left side we were able to visualize the right upper quadrant. We could see a chronically inflamed gallbladder with a marked amount of adhesions of the omentum to the body and around the Velazco's pouch area of the gallbladder. These adhesions were taken down using gentle blunt dissection as well as judicious use of electrocautery. As we swept around Velazco's pouch a grasper was placed on this area. Applying lateral traction we were able to dissect out and expose the cystic duct and artery. Having obtained the critical view, a clip was placed between the gallbladder and the cystic duct. The cystic duct was now open. Milking the cystic duct using a [place] dissector we did get some debris out of the cystic duct. The catheter was now carefully placed into the cystic duct and we obtained a normal intraoperative cholangiogram. No filling defects were seen. The catheter was removed. 2 clips were placed across the cystic duct. The cystic duct was now transected. Attention was turned towards the cystic artery which was dealt with in similar fashion. The gallbladder was now dissected free from the liver bed. We did make a hole with some bill for any leakage into the peritoneal cavity as we did our dissection. The specimen now having been detached was placed into an Endo Catch and brought out through the umbilical trocar site. Attention was turned back up towards her right upper quadrant. This area was irrigated with a copious amount of a saline solution until the effluent was clear. The umbilical trocar site was now after having returned the patient to the neutral position on the OR table, closed using the Endo Close and an absorbable suture. The anterior abdominal wall was blocked with 0.25% Marcaine. At this point the pneumoperitoneum was collapsed, the trochars removed, and sutures tied. Adrianne were then applied to the skin. At the end of the procedure he was stable and sent to the recovery room. Needle sponge instrument count were correct. No drains were placed.
[2022-02-21] MEDS ORDERED: HYDROCODONE/APAP 7.5/325 MG TAB PO PRN (13:26)
[2022-02-21] MEDS ORDERED: MORPHINE 4 MG/ML SYR IV PRN (13:26)
[2022-02-21] MEDS ORDERED: ONDANSETRON 4 MG/2 ML VIAL IV PRN (13:26)
[2022-02-21] MEDS: HYDROMORPHONE HCL 1 MG/ML INJ ONE ×2 (13:34→13:39)
[2022-02-21] MEDS ORDERED: HYDROMORPHONE HCL 1 MG/ML INJ ONE (13:46)
[2022-02-21] MEDS ORDERED: ACETAMINOPHEN 325 MG TABLET PO PRN (13:55)
[2022-02-21] MEDS ORDERED: PROMETHAZINE INJ 25 MG/ML AMP ONE (13:58)
[2022-02-21] MEDS: Ringers Lactate 1,000 ML IV SCH (14:00)
[2022-02-21 14:13] VITALS: O2SAT 98
[2022-02-21 14:48] VITALS: BMI 36.8
[2022-02-21] MEDS: CEFOXITIN 1 GM in NA CHLORIDE 0.9% 50 ML IVPB SCH (17:35)
[2022-02-21] MEDS: FAMOTIDINE 20 MG/2 ML VIAL IV SCH (20:29)
[2022-02-22] MEDS: CEFOXITIN 1 GM in NA CHLORIDE 0.9% 50 ML IVPB SCH ×3 (00:15)
[2022-02-22] MEDS: Ringers Lactate 1,000 ML IV SCH ×2 (00:16→10:01)
[2022-02-22 03:49] LABS: Absolute Lymphocytes (CBC) 1.1 K/uL (0.7-4.9); Lymphocytes % 9.4 % (15.3-44.8); MPV 8.4 fL (7.6-11.3); RBC Red Blood Cell Count 4.85 M/uL (4.33-5.43)
[2022-02-22 03:59] LABS: Albumin 3.4 g/dL (3.4-5.0); Bilirubin Direct 0.2 mg/dL (0-0.2); Bilirubin Total 0.7 mg/dL (0.2-1.0); Potassium 4.1 mmol/L (3.5-5.1); Protein, Total 6.6 g/dL (6.4-8.2)
[2022-02-22 08:28] VITALS: TEMP 98
[2022-02-22] MEDS: FAMOTIDINE 20 MG/2 ML VIAL IV SCH (09:02)
[2022-02-22 12:37] VITALS: BP 148/82
--- NOTE | 2022-02-22 12:46 | P.DS ---
Admission Date: 02/21/22 Discharge Date: 02/22/22 Disposition: ROUTINE DISCHARGE Discharge Condition: GOOD Reason for Admission: Acute postoperative abdominal pain Procedures: Laparoscopic cholecystectomy, intraoperative cholangiogram Brief History of Present Illness: This patient presented to the emergency room with severe right upper quadrant abdominal pain for diagnosis and treatment. Hospital Course: Patient was found to have cholecystitis with cholelithiasis. He was brought to the operating room for laparoscopic cholecystectomy with intraoperative cholangiogram. He tolerated these procedures well. The cholangiogram was negative. He was admitted postoperatively for observation and pain control. Today he is up ambulating, tolerating a diet, no longer requires any pain medicine. He is deemed fit for discharge. Vital Signs/Physical Exam: Temp Pulse Resp BP Pulse Ox 98.0 F 66 18 148/82 H 100 02/22/22 12:00 02/22/22 12:00 02/22/22 12:00 02/22/22 12:00 02/22/22 12:00 Laboratory Data at Discharge: WBC 11.9 K/uL (4.3-10.9) H D 02/22/22 03:04 Hgb 14.3 g/dL (13.6-17.9) 02/22/22 03:04 Hct 42.0 % (39.6-49.0) 02/22/22 03:04 Plt Count 268 K/uL (152-406) 02/22/22 03:04 Sodium 139 mmol/L (136-145) 02/22/22 03:04 Potassium 4.1 mmol/L (3.5-5.1) 02/22/22 03:04 BUN 12 mg/dL (7-18) 02/22/22 03:04 Creatinine 1.00 mg/dL (0.55-1.3) 02/22/22 03:04 Glucose 135 mg/dL (74-106) H 02/22/22 03:04 Total Bilirubin 0.7 mg/dL (0.2-1.0) 02/22/22 03:04 AST 13 U/L (15-37) L 02/22/22 03:04 ALT 65 U/L (12-78) 02/22/22 03:04 Alkaline Phosphatase 53 U/L (45-117) 02/22/22 03:04 Lipase 90 U/L (73-393) 02/22/22 03:04 Physician Discharge Instructions: Ambulated home, continue incentive spirometry. Advil/Motrin for pain. You may shower. Change bandages as needed. Any questions or problems, return to the emergency room, or contact me. Call my office for a follow-up appointment. Followup: NONE,NONE [Primary Care Provider] -
--- NOTE | 2022-02-22 12:59 | P.DS ---
Admission Date: 02/21/22 Discharge Date: 02/22/22 Disposition: ROUTINE DISCHARGE Discharge Condition: GOOD Vital Signs/Physical Exam: Temp Pulse Resp BP Pulse Ox 98.0 F 66 18 148/82 H 100 02/22/22 12:00 02/22/22 12:00 02/22/22 12:00 02/22/22 12:00 02/22/22 12:00 Laboratory Data at Discharge: WBC 11.9 K/uL (4.3-10.9) H D 02/22/22 03:04 Hgb 14.3 g/dL (13.6-17.9) 02/22/22 03:04 Hct 42.0 % (39.6-49.0) 02/22/22 03:04 Plt Count 268 K/uL (152-406) 02/22/22 03:04 Sodium 139 mmol/L (136-145) 02/22/22 03:04 Potassium 4.1 mmol/L (3.5-5.1) 02/22/22 03:04 BUN 12 mg/dL (7-18) 02/22/22 03:04 Creatinine 1.00 mg/dL (0.55-1.3) 02/22/22 03:04 Glucose 135 mg/dL (74-106) H 02/22/22 03:04 Total Bilirubin 0.7 mg/dL (0.2-1.0) 02/22/22 03:04 AST 13 U/L (15-37) L 02/22/22 03:04 ALT 65 U/L (12-78) 02/22/22 03:04 Alkaline Phosphatase 53 U/L (45-117) 02/22/22 03:04 Lipase 90 U/L (73-393) 02/22/22 03:04 Followup: NONE,NONE [Primary Care Provider] -
== END 2022-02-22 16:30 | disposition home or self-care (01) ==
LOC: ER 06:39 → ERHOLD 09:05 → 2ND 13:26
PROVIDERS: ADMIT Surgery; ATTEND Surgery
PROC: BF00YZZ Plain Radiography of Bile Ducts using Other Contrast (ICD-10-PCS; 2022-02-21)
PROC: 0FT44ZZ Resection of Gallbladder, Percutaneous Endoscopic Approach (ICD-10-PCS; principal; 2022-02-21 10:30)
DX: K80.10 Calculus of gallbladder with chronic cholecystitis without obstruction (principal); F17.210 Nicotine dependence, cigarettes, uncomplicated; Z20.822 Contact with and (suspected) exposure to COVID-19
CPT/HCPCS: 36415; 74177; 74300; 76705; 80048; 80053; 80076; 83690; 85025; 88304; 94010; 96361; 96374; 99283; G0378; J0694; J1100; J1170; J2250; J2405; J2550; J2704; J2710; J3010; J3490; J7030; J7120; Q9967; U0003

== ENCOUNTER 2022-03-03 11:58 | Inpatient (IN) | payer SELFPAY ==
--- OUTSIDE RECORDS SUMMARY | 2022-03-03 12:01 | XMS REPORT | Continuity of Care Document ---
:1985 Author Organization [facility] t Address [facility] [address] [place] [address] Care Team Providers Name Role Phone KATHARINE [...] Department ID 2019-12-07 2019-12-07 Emergency E SAADIA [address] [id number] 04:36:00 04:36:00 KATHARINE Results This patient has no known results.
[2022-03-03 12:37] LABS: Hematocrit 47.1 % (39.6-49.0); Lymphocytes % 30.9 % (15.3-44.8); MPV 8.2 fL (7.6-11.3); RBC Red Blood Cell Count 5.46 M/uL (4.33-5.43)
[2022-03-03] MEDS ORDERED: KETOROLAC 30 MG/ML INJ ONE ×2 (12:46→15:47)
[2022-03-03] MEDS ORDERED: NA CHLORIDE 0.9% 1,000 ML ONE (12:46)
[2022-03-03] MEDS ORDERED: LIDOCAINE 4% PATCH ONE (12:47)
[2022-03-03 12:51] LABS: Albumin 4.2 g/dL (3.4-5.0); Potassium 3.7 mmol/L (3.5-5.1); Protein, Total 8.3 g/dL (6.4-8.2)
--- NOTE | 2022-03-03 13:27 | RAD REPORT ---
EXAM DESCRIPTION: CTAbdomen Pelvis W Contrast - 03/03/2022 1:07 pm CLINICAL HISTORY: Abdominal pain. Right flank pain COMPARISON: Abdomen Pelvis W Contrast dated 02/21/2022 TECHNIQUE: Biphasic CT imaging of the abdomen and pelvis was performed with 100 ml non-ionic IV cont rast. All CT scans are performed using dose optimization technique as appropriate and may include automated exposure control or mA/KV adjustment according to patient size. FINDINGS: The lung bases are clear. The liver is diffusely fatty. Cholecystectomy clips. Spleen, pancreas, adrenal glands and kidneys are within normal limits. No bowel obstruction, free air, free fluid or abscess. Umbilical hernia is present, containing fat wi th slight inflammation. The appendix appears dilated headaches base to 11 mm with a small amount of s urrounding inflammation. No evidence of significant lymphadenopathy. No suspicious bony findings. IMPRESSION: Early acute appendicitis is suspected. Fatty liver.
[2022-03-03] MEDS ORDERED: PIPERACIL/TAZO 3.375 GM VIAL IV ONE (13:50)
[2022-03-03] MEDS ORDERED: NA CHLORIDE 0.9% 100 ML ONE (13:50)
--- NOTE | 2022-03-03 14:20 | EDPHYS ---
Physician Documentation [facility] Name: Zackary Mandujano Jr Age: 36 yrs Sex: Male : 1985 Arrival Date: 03/03/2022 Time: 11:59 Bed Treatment Private MD: ED Physician Bahman Hollins HPI: 03/03 12:25 This 36 yrs old Male presents to ER via Ambulatory with complaints of Flank pm1 Pain - right. 12:25 The pain does not radiate. Onset: The symptoms/episode began/occurred 4 day(s) ago. pm1 Modifying factors: the symptoms are aggravated by walking and sneezing. Associated signs and symptoms: Pertinent negatives: diarrhea, dysuria, fever, nausea, vomiting. Severity of pain: in the emergency department the pain is actually worse. The patient has not experienced similar symptoms in the past. The patient has been recently seen by a physician: with different complaint(s), admitted on 02/[address] Neely for cholecystitis and had cholecystectomy. Historical: - Allergies: 12:06 No Known Allergies; ld1 - Home Meds: 12:06 None [Active]; ld1 - PMHx: 12:06 None; ld1 - PSHx: 12:06 Cholecystectomy; ld1 - Immunization history:: Adult Immunizations up to date, Client reports receiving the 1st dose of the Covid vaccine. - Social history:: Smoking status: Patient denies any tobacco usage or history of. Patient/guardian denies using alcohol. ROS: 12:25 Constitutional: Negative for fever, chills, and weight loss, Cardiovascular: Negative pm1 for chest pain, palpitations, and edema, Respiratory: Negative for shortness of breath, cough, wheezing, and pleuritic chest pain. 12:25 MS/Extremity: Negative for injury and deformity, Skin: Negative for injury, rash, and discoloration, Neuro: Negative for headache, weakness, numbness, tingling, and seizure. 12:25 Abdomen/GI: Negative for abdominal pain, nausea, vomiting, and diarrhea, constipation. 12:25 Back: Positive for flank pain, on the right. 12:25 All other systems are negative. Exam: 13:32 Constitutional: This is a well developed, well nourished patient who is awake, alert, pm1 and in no acute distress. Head/Face: Normocephalic, atraumatic. 13:32 Skin: Warm, dry with normal turgor. Normal color with no rashes, no lesions, and no evidence of cellulitis. MS/ Extremity: Pulses equal, no cyanosis. Neurovascular intact. Full, normal range of motion. 13:32 Cardiovascular: Exam negative for acute changes, Rate: normal, Rhythm: regular, Pulses: no pulse deficits are appreciated, Heart sounds: normal. 13:32 Respiratory: Exam negative for acute changes, respiratory distress, shortness of breath, Breath sounds: are clear throughout. 13:32 Abdomen/GI: Inspection: obese Palpation: soft, in all quadrants, moderate abdominal tenderness, in the right lower quadrant. 13:32 Back: pain, that is mild, of the right low back, ROM is normal, normal spinal alignment noted. 13:32 Neuro: Exam negative for acute changes, Orientation: is normal, Motor: is normal, moves all fours. Vital Signs: 12:07 BP 143 / 62; Pulse 99; Resp 18; Temp 98.1(TE); Pulse Ox 96% on R/A; Weight 113.4 kg; ld1 Height 5 ft. 10 in. (177.80 cm); Pain 5/10; 12:07 Body Mass Index 35.87 (113.40 kg, 177.80 cm) ld1 MDM: 12:22 Patient medically screened. pm1 13:33 Counseling: I had a detailed discussion with the patient and/or guardian regarding: the pm1 historical points, exam findings, and any diagnostic results supporting the discharge/admit diagnosis, lab results, radiology results, the need for further work-up and treatment in the hospital. 13:39 Data reviewed: vital signs. Data interpreted: Pulse oximetry: on room air is 96 %. pm1 Interpretation: normal. 13:55 Physician consultation: Matt Neely MD was called at 13:29, was contacted at 13:29, pm1 regarding patient's condition, Not residential collections and out of town. Requests Dr. Guerra to treat the patient. Informed the patient that Dr. Neely is not available per his request but Dr. Neely asked for Mari to take care of him. 14:18 Physician consultation: Ciaran Guerra MD was contacted at 14:18, regarding admission, pm1 patient's condition, and will see patient in OR, shortly. 03/03 12:24 Order name: CBC with Diff; Complete Time: 12:42 pm1 03/03 12:24 Order name: CMP; Complete Time: 12:53 pm1 03/03 12:24 Order name: Lipase; Complete Time: 12:53 pm1 03/03 12:24 Order name: CT Abd/Pelvis - IV Contrast Only; Complete Time: 13:29 pm1 03/03 14:15 Order name: SARS-COV-2 RT PCR (Document "Date of Onset" if Symptomatic) iw 03/03 12:24 Order name: IV Saline Lock; Complete Time: 12:31 pm1 03/03 12:24 Order name: Labs collected and sent; Complete Time: 12:31 pm1 03/03 13:33 Order name: NPO; Complete Time: 13:43 pm1 Administered Medications: 12:49 Drug: NS 0.9% 1000 ml Route: IV; Rate: 1 bolus; Site: left antecubital; iw 15:05 Follow up: IV Status: Completed infusion iw 12:49 Drug: Ketorolac 30 mg Route: IVP; Site: left antecubital; iw 13:15 Follow up: Response: No adverse reaction iw 12:49 Drug: Lidoderm Patch 5 % (700 mg/patch) 1 patches Route: Topical; Site: abdomen; iw 13:55 Drug: Zosyn (piperacillin-tazobactam) 3.375 grams Route: IVPB; Infused Over: 60 mins; iw Site: left antecubital; 15:04 Follow up: IV Status: Completed infusion iw 15:05 Not Given (pt to Beck): NS 0.9% 1000 ml IV at 125 ml/hr continuous iw Disposition: 17:15 Co-signature as Attending Physician, Bahman Hollins MD I agree with the assessment and kdr plan of care. Disposition Summary: 03/03/22 14:19 Hospitalization Ordered Hospitalization Status: Observation pm1 Provider: Ciaran Guerra pm1 Location: Telemetry/MedSurg (observation) pm1 Condition: Stable pm1 Problem: new pm1 Symptoms: have improved pm1 Bed/Room Type: Standard pm1 Room Assignment: pm1 Diagnosis - Unspecified acute appendicitis pm1 Forms: - Medication Reconciliation Form pm1 - SBAR form pm1 Signatures: Dispatcher [employer] Bahman Franklin MD MD kdr Leyda Holguin RN RN iw Pa Hennessy, KAILEY [employer] pm1 Renata Leggett RN RN ld1
--- NOTE | 2022-03-03 14:20 | ER ---
Nurse's Notes [facility] Name: Zackary Mandujano Jr Age: 36 yrs Sex: Male : 1985 Arrival Date: 03/03/2022 Time: 11:59 Bed Treatment Private MD: Diagnosis: Unspecified acute appendicitis Presentation: 03/03 12:07 Chief complaint: Patient states: 02/21/22 I came in and had my gallbladder removed. Now ld1 I am having right side/right flank pain when I take a deep breath, sneeze or walk. I am concerned I may have a pulled muscle or a complication from my surgery. Coronavirus screen: At this time, the client does not indicate any symptoms associated with coronavirus-19. Ebola Screen: No symptoms or risks identified at this time. Initial Sepsis Screen: Does the patient meet any 2 criteria? No. Patient's initial sepsis screen is negative. Does the patient have a suspected source of infection? No. Patient's initial sepsis screen is negative. Risk Assessment: Do you want to hurt yourself or someone else? Patient reports no desire to harm self or others. Onset of symptoms was March 03, 2022. 12:07 Method Of Arrival: Ambulatory ld1 12:07 Acuity: TOYA 3 ld1 Triage Assessment: 12:09 General: Appears in no apparent distress. comfortable, Behavior is calm, cooperative, ld1 appropriate for age. Pain: Complains of pain in anterior aspect of right lateral abdomen and posterior aspect of right lateral abdomen Pain does not radiate. Pain currently is 5 out of 10 on a pain scale. at worst was 9 out of 10 on a pain scale. Quality of pain is described as stabbing. Neuro: Level of Consciousness is awake, alert, obeys commands, Oriented to person, place, time, situation. Neuro: Reports. Cardiovascular: Capillary refill < 3 seconds Patient's skin is warm and dry. Respiratory: Airway is patent Respiratory effort is even, unlabored. GI: Abdomen is round non-distended. Historical: - Allergies: 12:06 No Known Allergies; ld1 - Home Meds: 12:06 None [Active]; ld1 - PMHx: 12:06 None; ld1 - PSHx: 12:06 Cholecystectomy; ld1 - Immunization history:: Adult Immunizations up to date, Client reports receiving the 1st dose of the Covid vaccine. - Social history:: Smoking status: Patient denies any tobacco usage or history of. Patient/guardian denies using alcohol. Screenin:32 Abuse screen: Denies threats or abuse. Denies injuries from another. Nutritional iw screening: No deficits noted. Tuberculosis screening: No symptoms or risk factors identified. Fall Risk None identified. Assessment: 12:31 General: Appears in no apparent distress. Behavior is calm, cooperative. Pain: iw Complains of pain in posterior aspect of right lateral abdomen and anterior aspect of right lateral abdomen. Neuro: Level of Consciousness is awake, alert, obeys commands, Oriented to person, place, time, situation. Cardiovascular: Patient's skin is warm and dry. GI: Reports. Derm: Skin is intact, is healthy with good turgor. Vital Signs: 12:07 BP 143 / 62; Pulse 99; Resp 18; Temp 98.1(TE); Pulse Ox 96% on R/A; Weight 113.4 kg; ld1 Height 5 ft. 10 in. (177.80 cm); Pain 5/10; 12:07 Body Mass Index 35.87 (113.40 kg, 177.80 cm) ld1 ED Course: 11:59 Patient arrived in ED. am2 12:06 Pa Hennessy NP is PHCP. pm1 12:06 Bahman Hollins MD is Attending Physician. pm1 12:09 Triage completed. ld1 12:09 Arm band placed on right wrist. ld1 12:17 Leyda Holguin, JAMES is Primary Nurse. iw 12:30 Inserted saline lock: 20 gauge in left antecubital area, using aseptic technique. iw 13:09 CT Abd/Pelvis - IV Contrast Only In Process Unspecified. EDMS 14:19 Ciaran Guerra MD is Hospitalizing Provider. pm1 Administered Medications: 12:49 Drug: NS 0.9% 1000 ml Route: IV; Rate: 1 bolus; Site: left antecubital; iw 15:05 Follow up: IV Status: Completed infusion iw 12:49 Drug: Ketorolac 30 mg Route: IVP; Site: left antecubital; iw 13:15 Follow up: Response: No adverse reaction iw 12:49 Drug: Lidoderm Patch 5 % (700 mg/patch) 1 patches Route: Topical; Site: abdomen; iw 13:55 Drug: Zosyn (piperacillin-tazobactam) 3.375 grams Route: IVPB; Infused Over: 60 mins; iw Site: left antecubital; 15:04 Follow up: IV Status: Completed infusion iw 15:05 Not Given (pt to Beck): NS 0.9% 1000 ml IV at 125 ml/hr continuous iw Outcome: 14:19 Decision to Hospitalize by Provider. pm1 15:03 Patient left the ED. iw Signatures: Dispatcher [employer] EDLeyda Mack, RN RN iw Pa Hennessy, KAILEY [employer] pm1 Sylvia Lange am2 Renata Leggett RN RN ld1
[2022-03-03] MEDS ORDERED: propofoL 200 MG/20 ML VIAL IV ONE (15:07)
[2022-03-03] MEDS ORDERED: LIDOCAINE 1% MPF 5 ML VIAL ONE (15:08)
[2022-03-03] MEDS ORDERED: FENTANYL CITR 100 MCG/2 ML ONE (15:08)
[2022-03-03] MEDS ORDERED: ROCURONIUM 50 MG/5 ML VIAL IV ONE ×2 (15:08→15:43)
[2022-03-03] MEDS: Ringers Lactate 1,000 ML IV ONE (15:15)
--- NOTE | 2022-03-03 15:24 | P.HP ---
Date of Service: 03/03/22 Chief complaint: Abdominal pain History of present Illness: Patient is a 36-year-old gentleman who underwent a laparoscopic cholecystectomy by Dr. Neely 11 days ago. Patient started having right middle quadrant and right flank pain about 5 days ago. Patient today was not feeling well at all and came to the emergency room for further work-up and evaluation. Patient has some nausea but no vomiting. Patient denies diarrhea, constipation, no blood in the stool, no dysuria, hematuri A, no sore throat, runny nose, cough, headaches or dizziness, no chest pain, no fever chills. Review of systems: Otherwise unremarkable Past medical history: Negative Past surgical history: Recent laparoscopic cholecystectomy Allergies: None Social history: Denies smoking occasional alcohol Family history: Diabetes Vital signs: Stable, afebrile Physical exam: Awake alert oriented x3 Head and neck: No masses Chest: Clear Heart: S1-S2 Abdomen: Soft, nondistended, positive bowel sounds, right lower quadrant tenderness with minimal rebound no rigidity or guarding Diagnostic data: White count is normal, CT of the abdomen and pelvis shows evidence of acute appendicitis Assessment: Acute appendicitis Plan/recommendation: Admit, n.p.o., IV fluids, IV antibiotics and to the OR for laparoscopic appendectomy possible open. Patient understands risk benefits alternatives and agrees to procedure. CC: Dr. Neely's office
[2022-03-03] MEDS ORDERED: dexAMETHasone 10 MG/ML VIAL ONE (15:46)
[2022-03-03] MEDS ORDERED: ALBUTEROL INHALER 60 PUFF/8 GM IH ONE (15:47)
[2022-03-03] MEDS ORDERED: ONDANSETRON 4 MG/2 ML VIAL ONE ×2 (15:47→16:05)
[2022-03-03] MEDS ORDERED: GLYCOPYRROLATE 0.2 MG/ML SYR ONE ×2 (16:05→16:29)
[2022-03-03] MEDS ORDERED: NEOSTIGMINE 1 MG/ML -10 ML VIAL ONE (16:29)
--- NOTE | 2022-03-03 16:42 | P.OP ---
Date of Service: 03/03/22 Preop diagnosis: Acute appendicitis Postop diagnosis: Same Procedure performed: Laparoscopic appendectomy Surgeon: Ciaran Guerra MD [employer] Tender: None Estimated blood loss: Minimal Specimen: Appendix Findings: As above Anesthesia: General Complications: None Drains: None Fluids and blood products: Nonapplicable Disposition: Recovery room Operative note: Patient brought to the OR and placed in the supine position. Patient prepped and draped in the usual sterile fashion after general anesthesia was begun. Marcaine 0.5% was infiltrated locally. 15 blade was used to make a 1 cm supraumbilical midline incision. Subcutaneous tissue divided and fascia identified and divided. #1 Vicryl stay suture placed into the fascia. Peritoneal cavity entered with sharp and blunt dissection. 12 mm trocar placed into the peritoneal cavity under direct vision. Pneumoperitoneum established. A 5 mm trochars placed in the suprapubic region and another in the left lower quadrant. Laparoscopy revealed acute appendicitis with induration dilatation of the appendix with surrounding inflammation. Mesoappendix and base of the append ix identified. Then the LigaSure used to divide the mesoappendix and Endo TIESHA stapling device used to divide the appendiceal stump on the cecum. Right lower quadrant irrigated effluent clear with no evidence of bleeding or bowel injury appreciated. Subsequently, all trochars removed under direct vision. Stay sutures tied to each other to reapproximate the fascial defect. Subcutaneous was irrigated and bleeding controlled with cautery. 3-0 chromic used to reapproximate the subcutaneous tissue and steven used to close skin. Sterile dressing applied. Patient awakened taken to recovery room in good general condition. CC:
[2022-03-03] MEDS ORDERED: HYDROCODONE/APAP 7.5/325 MG TAB PO PRN (17:15)
[2022-03-03] MEDS ORDERED: ONDANSETRON 4 MG/2 ML VIAL IV PRN (17:15)
[2022-03-03] MEDS ORDERED: HYDROMORPHONE HCL 1 MG/ML INJ IV PRN (17:15)
[2022-03-03] MEDS ORDERED: Ringers Lactate 1,000 ML IV ONE (18:08)
[2022-03-03] MEDS: Ringers Lactate 1,000 ML IV SCH (18:09)
[2022-03-03] MEDS: PIPER TAZO 3.375 GM in NA CHLORIDE 0.9% 100 ML IV SCH (18:09)
[2022-03-03 18:35] VITALS: BMI 35.9
[2022-03-03] MEDS ORDERED: KETOROLAC 30 MG/ML INJ IV ONE (23:02)
[2022-03-04] MEDS: PIPER TAZO 3.375 GM in NA CHLORIDE 0.9% 100 ML IV SCH ×2 (01:59→07:58)
[2022-03-04] MEDS: Ringers Lactate 1,000 ML IV SCH (03:40)
[2022-03-04 04:24] LABS: Absolute Lymphocytes (CBC) 0.8 K/uL (0.7-4.9); Hematocrit 38.9 % (39.6-49.0); Lymphocytes % 10.8 % (15.3-44.8); MPV 8.2 fL (7.6-11.3); RBC Red Blood Cell Count 4.53 M/uL (4.33-5.43)
[2022-03-04 05:17] LABS: Blood Morphology Comment NOT SEEN (NOT SEEN); Platelet Estimate ADEQ
[2022-03-04] MEDS ORDERED: KETOROLAC 30 MG/ML INJ IV PRN (08:04)
[2022-03-04 09:08] VITALS: BP 117/69; TEMP 98.1
--- NOTE | 2022-03-04 10:10 | P.DS ---
Admission Date: 03/04/22 Discharge Date: 03/04/22 Disposition: ROUTINE DISCHARGE Discharge Condition: GOOD Reason for Admission: Acute appendicitis Consultations: None Procedures: Laparoscopic appendectomy Brief History of Present Illness: Patient is a 36-year-old gentleman who presented to the emergency room with acute onset of right lower quadrant abdominal pain. Hospital Course: Work-up revealed patient to have acute appendicitis. Patient started on IV antibiotics and taken to the operating room for laparoscopic appendectomy. Postoperatively, patient is tolerating diet, ambulating, pain controlled on oral pain medication and patient is afebrile. Therefore, patient will be discharged to home. Disposition: Home Condition: Stable Activity: As tolerated, no heavy lifting Medications: Augmentin and Advil Incentive spirometry as ordered Follow-up my office 1 week for staple removal and follow-up in 2 weeks to see me. Vital Signs/Physical Exam: Temp Pulse Resp BP Pulse Ox 98.1 F 59 16 117/69 99 03/04/22 08:00 03/04/22 08:00 03/04/22 08:00 03/04/22 08:00 03/04/22 08:00 Laboratory Data at Discharge: WBC 7.5 K/uL (4.3-10.9) 03/04/22 03:51 Hgb 13.8 g/dL (13.6-17.9) 03/04/22 03:51 Hct 38.9 % (39.6-49.0) L D 03/04/22 03:51 Plt Count 283 K/uL (152-406) 03/04/22 03:51 Sodium 139 mmol/L (136-145) 03/03/22 12:25 Potassium 3.7 mmol/L (3.5-5.1) 03/03/22 12:25 BUN 9 mg/dL (7-18) 03/03/22 12:25 Creatinine 1.08 mg/dL (0.55-1.3) 03/03/22 12:25 Glucose 95 mg/dL (74-106) 03/03/22 12:25 Total Bilirubin 1.0 mg/dL (0.2-1.0) 03/03/22 12:25 AST 11 U/L (15-37) L 03/03/22 12:25 ALT 58 U/L (12-78) 03/03/22 12:25 Alkaline Phosphatase 87 U/L (45-117) 03/03/22 12:25 Lipase 142 U/L (73-393) 03/03/22 12:25 Home Medications: Amox/Clavulanate [Augmentin 875-125 Tab] 875 mg PO BID #20 tab 03/04/22 New Medications: Amox/Clavulanate [Augmentin 875-125 Tab] 875 mg PO BID #20 tab Physician Discharge Instructions: Remove outer dressing in a.m. and shower Keep wound clean and dry Use Band-Aid or gauze to cover wound after shower Incentive spirometry as ordered Augmentin called into patient's pharmacy Diet: Regular Activity: No lifting more than 10 lbs Followup: NONE,NONE [Primary Care Provider] - Ciaran Guerra MD [ACTIVE - CAN ADMIT] - 03/13/22
[2022-03-04 10:13] VITALS: O2SAT 97
== END 2022-03-04 10:45 | disposition home or self-care (01) | DRG 343 ==
LOC: ER 11:58 → ERHOLD 14:26 → 2ND 17:28 → OBSVTOIN 03-04 09:06
PROVIDERS: ADMIT Surgery; ATTEND Surgery
PROC: 0DTJ4ZZ Resection of Appendix, Percutaneous Endoscopic Approach (ICD-10-PCS; principal; 2022-03-03 15:30)
DX: K35.80 Unspecified acute appendicitis (principal); Z20.822 Contact with and (suspected) exposure to COVID-19; Z90.49 Acquired absence of other specified parts of digestive tract
CPT/HCPCS: 36415; 74177; 80053; 83690; 85025; 88304; 94010; 96361; 96365; 96375; 99283; G0378; J1100; J2001; J2405; J2543; J2704; J2710; J3010; J7030; J7120; Q9967; U0003

== ENCOUNTER 2023-03-11 16:44 | Emergency (ER) | payer SELFPAY ==
--- OUTSIDE RECORDS SUMMARY | 2023-03-11 16:53 | XMS REPORT | Continuity of Care Document ---
:1985 Author Organization [facility] t Address [address] [place] [address] [place] [id number] Care Team Providers Name Role Phone KATHARINE [...] ID 2019-12-07 2019-12-07 Emergency E SAADIA RUIZ [id number] 04:36:00 04:36:00 KATHARINE Results This patient has no known results.
[2023-03-11 18:21] LABS: Specific Gravity 1.018 (1.005-1.030); Urine Bacteria None Seen /HPF (<20); Urine Bilirubin NEGATIVE (Negative); Urine Blood Trace (Negative); Urine Clarity Clear (Clear); Urine Color Light-Yellow (Yellow); Urine Glucose NEGATIVE (Negative); Urine Protein NEGATIVE (Negative); Urine RBC <5 /HPF (None Seen); Urine Urobilinogen Normal (Normal); Urine pH 6.5 (5.0-7.0)
[2023-03-11 18:24] LABS: Absolute Lymphocytes (CBC) 2.5 K/uL (0.7-4.9); Hematocrit 42.8 % (39.6-49.0); Lymphocytes % 33.4 % (15.3-44.8); MCV 86.2 fL (80-100); MPV 8.3 fL (7.6-11.3); RBC Red Blood Cell Count 4.97 M/uL (4.33-5.43)
[2023-03-11] MEDS ORDERED: NA CHLORIDE 0.9% 1,000 ML ONE (18:32)
[2023-03-11 18:35] LABS: Albumin 3.9 g/dL (3.4-5.0); Bilirubin Total 0.8 mg/dL (0.2-1.0); Potassium 3.5 mEq/L (3.5-5.1); Protein, Total 7.6 g/dL (6.4-8.2)
--- NOTE | 2023-03-11 19:09 | RAD REPORT ---
EXAM DESCRIPTION: CTAbdomen Pelvis W Contrast - 03/11/2023 7:03 pm CLINICAL HISTORY: Abdominal pain. ABD PAIN COMPARISON: Abdomen Pelvis W Contrast dated 03/03/2022; Abdomen Pelvis W Contrast dated 02/21/2022 TECHNIQUE: Biphasic CT imaging of the abdomen and pelvis was performed with 100 ml non-ionic IV cont rast. All CT scans are performed using dose optimization technique as appropriate and may include automated exposure control or mA/KV adjustment according to patient size. FINDINGS: The lung bases are clear.Cholecystectomy. The liver, spleen, pancreas, adrenal glands and kidneys are within normal limits. No bowel obstruction, free air, free fluid or abscess. Appendectomy. No evidence of significant lym phadenopathy. No suspicious bony findings. IMPRESSION: No acute intra-abdominal or pelvic finding.
--- NOTE | 2023-03-11 19:32 | EDPHYS ---
Physician Documentation [facility] Name: Zackary Mandujano Jr Age: 37 yrs Sex: Male : 1985 Arrival Date: 03/11/2023 Time: 16:44 Bed 9 Private MD: ED Physician Garrett Florez HPI: 03/11 17:20 This 37 yrs old Male presents to ER via Ambulatory with complaints of cp Abdominal Pain. 17:20 The patient presents with abdominal pain mid abdomen. Onset: The symptoms/episode cp began/occurred 2 week(s) ago. 17:20 The symptoms do not radiate. cp 17:20 Associated signs and symptoms: Pertinent negatives: anorexia, blood in stools, chest cp pain, constipation, diarrhea, fever, shortness of breath, testicular pain, vomiting. The symptoms are described as waxing/waning, bloating. Severity of pain: in the emergency department the pain is unchanged despite home interventions. Historical: - Allergies: 17:27 No Known Allergies; aa5 - Home Meds: 17:27 None [Active]; aa5 - PMHx: 17:27 None; aa5 - PSHx: 17:27 Cholecystectomy; Appendectomy; aa5 - Immunization history:: Adult Immunizations unknown. - Social history:: Smoking status: Reported history of juuling and/or vaping. ROS: 17:25 Constitutional: Negative for body aches, chills, fever, poor PO intake. cp 17:25 Abdomen/GI: Positive for abdominal pain. cp 17:25 Eyes: Negative for injury, pain, redness, and discharge. cp 17:25 ENT: Negative for drainage from ear(s), ear pain, sore throat, difficulty swallowing, difficulty handling secretions. 17:25 Cardiovascular: Negative for chest pain, edema, palpitations. 17:25 Respiratory: Negative for cough, shortness of breath, wheezing. 17:25 Back: Negative for pain at rest, pain with movement. 17:25 : Negative for urinary symptoms, testicular pain 17:25 Neuro: Negative for altered mental status, dizziness, headache, weakness. 17:25 All other systems are negative. Exam: 17:30 Constitutional: The patient appears in no acute distress, alert, awake, cp non-diaphoretic, non-toxic, well developed, well nourished, overweight 17:30 Head/Face: Normocephalic, atraumatic. cp 17:30 Eyes: Periorbital structures: appear normal, Conjunctiva: normal, no exudate, no injection, Sclera: no appreciated abnormality, Lids and lashes: appear normal, bilaterally. 17:30 ENT: External ear(s): are unremarkable, Nose: is normal, Mouth: Lips: moist, Oral mucosa: pink and intact, moist, Posterior pharynx: is normal, airway is patent, no erythema, no exudate. 17:30 Neck: ROM/movement: is normal, is supple, without pain, no range of motions limitations. 17:30 Chest/axilla: Inspection: normal. 17:30 Cardiovascular: Rate: normal, Rhythm: regular, Edema: is not appreciated, JVD: is not appreciated. 17:30 Respiratory: the patient does not display signs of respiratory distress, Respirations: normal, no use of accessory muscles, no retractions, labored breathing, is not present, Breath sounds: are clear throughout, no decreased breath sounds, no stridor, no wheezing. 17:30 Abdomen/GI: Inspection: abdomen appears normal, Bowel sounds: active, all quadrants, Palpation: soft, in all quadrants, mild abdominal tenderness, in the mid abdomen, rebound tenderness, is not appreciated, involuntary guarding, is not appreciated. 17:30 Back: pain, is absent, ROM is normal. 17:30 Neuro: Orientation: to person, place \T\ time. Mentation: is normal, Motor: moves all fours, strength is normal, Sensation: is normal. Vital Signs: 17:27 BP 139 / 90; Pulse 96; Resp 18 S; Temp 97.3(TE); Pulse Ox 97% on R/A; Weight 115.67 kg aa5 (R); Height 5 ft. 10 in. (R); 18:29 BP 139 / 85; Pulse 74; Resp 18; Pulse Ox 100% ; mb9 19:41 BP 135 / 84; Pulse 70; Resp 18; Pulse Ox 100% ; mb9 17:27 Body Mass Index 36.59 (115.67 kg, 177.8 cm) aa5 MDM: 17:25 Patient medically screened. cp 17:30 Differential diagnosis: bowel obstruction, non-specific abd pain, pancreatitis, Peptic cp Ulcer Disease, Perf. Duodenal Ulcer, Perf. Gastric Ulcer, Pyelonephritis, Ureterolithiasis, urinary tract infection. 19:30 Data reviewed: vital signs, nurses notes, lab test result(s), radiologic studies, CT cp scan. 19:30 I considered the following discharge prescriptions or medication management in the emergency department Medications were administered in the Emergency Department. See MAR. 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 Response to treatment: the patient's symptoms have mildly improved after treatment, and as a result, I will discharge patient. Special discussion: Based on the patient's Hx, exam, and Dx evaluation, there is no indication for emergent surgery or inpatient Tx. It is understood by the patient/guardian that if the Sx's persist or worsen they need to return immediately for re-evaluation. 03/11 17:12 Order name: CBC with Diff; Complete Time: 19:13 03/11 19:13 Interpretation: Reviewed. 03/11 17:12 Order name: CMP; Complete Time: 19:13 03/11 19:14 Interpretation: Normal except: CL 108; ALT 65; AST 13; GLOB 3.7. 03/11 17:12 Order name: Lipase; Complete Time: 19:13 03/11 17:12 Order name: Urinalysis w/ reflexes; Complete Time: 19:13 03/11 19:13 Interpretation: Normal except: UBLD Trace. 03/11 17:12 Order name: CT Abd/Pelvis - IV Contrast Only; Complete Time: 19:13 03/11 17:12 Order name: IV Saline Lock; Complete Time: 18:22 03/11 17:12 Order name: Labs collected and sent; Complete Time: 18:22 cp Administered Medications: 18:28 Drug: NS 0.9% IV 1000 ml Route: IV; Rate: 1 bolus; Site: left antecubital; mb9 Disposition Summary: 03/11/23 19:31 Discharge Ordered Location: Home cp Problem: new cp Symptoms: have improved cp Condition: Stable cp Diagnosis - Abdominal pain, unspecified cp Followup: cp - With: Lara, Bogdan, MD - When: 2 - 3 days - Reason: Recheck today's complaints Discharge Instructions: - Discharge Summary Sheet cp - Abdominal Pain, Adult cp Forms: - Medication Reconciliation Form cp - Thank You Letter cp - Antibiotic Education cp - Prescription Opioid Use cp - Work release form mb9 Prescriptions: - Protonix 40 mg Oral Tablet - take 1 tablet by ORAL route once daily; 30 tablet; Refills: 0, Product cp Selection Permitted Signatures: Dispatcher [employer] EDGinny Ponce, RN RN aa5 Garrett Wheat PA PA Marielena Velázquez RN RN mb9 Corrections: (The following items were deleted from the chart) 19:14 19:13 Normal except: CL 108. cp cp 19:14 19:14 Normal except: CL 108; ALT 65. cp cp 19:14 19:14 Normal except: CL 108; ALT 65; AST 13. cp cp
--- NOTE | 2023-03-11 19:32 | ER ---
Nurse's Notes [facility] Name: Zackary Mandujano Jr Age: 37 yrs Sex: Male : 1985 Arrival Date: 03/11/2023 Time: 16:44 Bed 9 Private MD: Diagnosis: Abdominal pain, unspecified Presentation: 03/11 17:27 Chief complaint: Patient states: abd pain x 2 week ago. Pt denies aa5 nausea/vomiting/diarrhea. 17:27 Coronavirus screen: At this time, the client does not indicate any symptoms associated aa5 with coronavirus-19. Ebola Screen: Patient denies travel to an Ebola-affected area in the 21 days before illness onset. Initial Sepsis Screen: Does the patient meet any 2 criteria? No. Patient's initial sepsis screen is negative. Does the patient have a suspected source of infection? No. Patient's initial sepsis screen is negative. Risk Assessment: Do you want to hurt yourself or someone else? Patient reports no desire to harm self or others. Onset of symptoms was February 2023. 17:27 Acuity: TOYA 3 aa5 17:27 Method Of Arrival: Ambulatory aa5 Historical: - Allergies: 17:27 No Known Allergies; aa5 - Home Meds: 17:27 None [Active]; aa5 - PMHx: 17:27 None; aa5 - PSHx: 17:27 Cholecystectomy; Appendectomy; aa5 - Immunization history:: Adult Immunizations unknown. - Social history:: Smoking status: Reported history of juuling and/or vaping. Screenin:22 [facility] ED Fall Risk Assessment (Adult) History of falling in the last 3 months, mb9 including since admission No falls in past 3 months (0 pts) Confusion or Disorientation No (0 pts) Intoxicated or Sedated No (0 pts) Impaired Gait No (0 pts) Mobility Assist Device Used No (0 pt) Altered Elimination No (0 pt) Score/Fall Risk Level 0 - 2 = Low Risk Oriented to surroundings, Maintained a safe environment, Educated pt \T\ family on fall prevention, incl call for assistance when getting out of bed. Abuse screen: Denies threats or abuse. Nutritional screening: No deficits noted. Tuberculosis screening: No symptoms or risk factors identified. Assessment: 18:29 General: Appears in no apparent distress. Behavior is calm, cooperative, appropriate mb9 for age. Pain: Complains of pain in abdomen Pain does not radiate. Neuro: [place] Agitation-Sedation Scale (RASS): 0 - Alert and Calm Level of Consciousness is awake, alert, obeys commands, Oriented to person, place, time, situation, Appropriate for age. Cardiovascular: Patient's skin is warm and dry. Respiratory: Airway is patent Respiratory effort is even, unlabored, Respiratory pattern is regular, symmetrical. GI: Abdomen is round non-distended, Bowel sounds present X 4 quads. Abd is soft and non tender X 4 quads. Patient currently denies diarrhea, nausea, vomiting. Derm: Skin is pink, warm \T\ dry. Musculoskeletal: Range of motion: intact in all extremities. 19:40 Reassessment: No changes from previously documented assessment. Patient and/or family mb9 updated on plan of care and expected duration. Pain level reassessed. Patient is alert, oriented x 3, equal unlabored respirations, skin warm/dry/pink. Vital Signs: 17:27 BP 139 / 90; Pulse 96; Resp 18 S; Temp 97.3(TE); Pulse Ox 97% on R/A; Weight 115.67 kg aa5 (R); Height 5 ft. 10 in. (R); 18:29 BP 139 / 85; Pulse 74; Resp 18; Pulse Ox 100% ; mb9 19:41 BP 135 / 84; Pulse 70; Resp 18; Pulse Ox 100% ; mb9 17:27 Body Mass Index 36.59 (115.67 kg, 177.8 cm) aa5 ED Course: 16:46 Patient arrived in ED. rg4 16:52 Garrett Wheat PA is PHCP. cp 16:52 Garrett Florez MD is Attending Physician. cp 17:15 Radiology exam delayed due to lab results not completed at this time. (BUN/Creatinine) jg10 IV insertion attempt and/or patient not having appropriate IV at this time. 17:27 Arm band placed on. aa5 17:28 Triage completed. aa5 18:09 Initial lab(s) drawn, by pr, sent to lab. Urine collected:. Inserted saline lock: 20 tm3 gauge in left antecubital area, using aseptic technique. 18:22 Marielena Cantrell RN is Primary Nurse. mb9 18:22 CBC with Diff Sent. mb9 18:22 CMP Sent. mb9 18:23 Lipase Sent. mb9 18:29 Placed in gown. Bed in low position. Call light in reach. Side rails up X 1. Client mb9 placed on continuous cardiac and pulse oximetry monitoring. NIBP monitoring applied. Door closed. Noise minimized. Warm blanket given. 18:30 No provider procedures requiring assistance completed. mb9 19:04 CT Abd/Pelvis - IV Contrast Only In Process Unspecified. EDMS 19:31 Bogdan Lara MD is Referral Physician. cp 19:41 IV discontinued, intact, bleeding controlled, No redness/swelling at site. Pressure mb9 dressing applied. Administered Medications: 18:28 Drug: NS 0.9% IV 1000 ml Route: IV; Rate: 1 bolus; Site: left antecubital; mb9 Medication: 18:33 VIS not applicable for this client. mb9 Outcome: 19:31 Discharge ordered by . cp 19:41 Discharged to home ambulatory. mb9 19:41 Condition: stable 19:41 Discharge instructions given to patient, Instructed on discharge instructions, follow up and referral plans. Demonstrated understanding of instructions, follow-up care, medications, Prescriptions given X 1. 19:41 Patient left the ED. mb9 Signatures: Dispatcher [employer] EDMS Russel Dunn tm3 Ginny Zheng, RN RN aa5 Garrett Wheat PA PA cp Garcia, Rubi rg4 Penelope Bacon Mary Beth, RN RN mb9
[2023-03-11 20:00] VITALS: TEMP 97.3
[2023-03-11 20:05] VITALS: O2SAT 100
[2023-03-11 20:10] VITALS: BP 135/84
== END 2023-03-11 19:41 | disposition home or self-care (01) ==
LOC: ER 16:44
DX: R10.9 Unspecified abdominal pain (principal)
CPT/HCPCS: 36415; 74177; 80053; 81001; 83690; 85025; 99284; J7030; Q9967